=== PATIENT | female | born 1945 | race Caucasian/White ===

== ENCOUNTER 2016-09-30 18:39 | Inpatient (IN) | payer MEDICARE ==
[~2016-09-30] VITALS: Ht 162.6 cm; Wt 88.3 kg
[~2016-09-30 18:39] MED LIST: B COTAB3 PO; CALCTAB32 OR; CELE200C OR; CEPH500C3 PO; FISHCAP; FOLITAB6 OR; GABA300C3 PO; GARL10002 PO; GLUC500C4 OR; IMIT100T OR; LEXA5TAB PO; LORTA10 PO; MAGN250T13 PO; NORV5TAB PO; OMEP20TA PO; SOMA350T PO; VITA400C36; ZINC50TA PO; [UNRECOGNIZED DRUG - CODE] OR
[2016-09-30 18:41] VITALS: BP 134/74; PULSE 88; RESP 24; TEMP 98.2; O2SAT 93
--- NOTE | 2016-09-30 19:31 | PD ---
Physical Exam Time Seen by Provider: 19:26 Narrative 71 year old sent by PCP stating that she thinks she may have had a stroke. States she has been shaky for the last few days. Yesterday she just fell out- she did not pass out, but she did fall. She states today she has been shaky as well and cannot remember half of the day. Pt takes lortab for chronic pain, has a history of neuropathy and hypertension. Currently no neuro symptoms, but has been "shaky." Data Data Last Documented VS Vital Signs Date Time Temp Pulse Resp B/P Pulse Ox O2 Delivery O2 Flow Rate FiO2 09/30/16 18:41 98.2 88 24 134/74 93 Room Air MDM Medical Record Reviewed: Yes Supervised Visit with ASSKIA: No Narrative Course 71 year old female presents to ED for evaluation. Appears without distress. Will be transferred to medical bed for further evaluation. Condition: Stable Kandace Hollingsworth Sep 30, 2016 19:31
[2016-09-30] MEDS ORDERED: SODIUM CHLORIDE 0.9% FLUSH 10 ML FLUSH IVF PRN (19:45)
[2016-09-30] MEDS ORDERED: GABA300C5 PO (19:50)
[2016-09-30] MEDS ORDERED: GLUC1CAP16 (19:50)
[2016-09-30] MEDS ORDERED: B COTAB (19:50)
[2016-09-30] MEDS ORDERED: CHEL50TA (19:50)
[2016-09-30] MEDS ORDERED: [UNRECOGNIZED DRUG - CODE] PO (19:50)
[2016-09-30] MEDS ORDERED: VITA60003 (19:50)
[2016-09-30] MEDS ORDERED: CALCTAB32 PO (19:50)
[2016-09-30] MEDS ORDERED: MAGN200T PO (19:50)
[2016-09-30] MEDS ORDERED: HYDR-3583 PO (19:50)
--- NOTE | 2016-09-30 19:51 | PD ---
HPI Chief Complaint: Neuro Symptoms/ Deficits Time Seen by Provider: 19:46 Travel History International Travel<30 days: No Contact w/Intl Traveler<30days: No Traveled to known affect area: No History of Present Illness HPI Patient comes in for evaluation status post 2 mechanical falls. One occurred yesterday and one this morning. Patient denies hitting her head, loss consciousness, chest pain, shortness of breath, nausea, vomiting, loss or change in bowel or bladder, vomiting, fevers, or numbness or tingling anywhere. Patient states that she just fell over. Patient states that her primary care doctor, Dr. Geraldine Lai, told her to come to the emergency department to have an MRI done to evaluate for possible stroke. Patient states she does not want an MRI done secondary to her to having metal in her arm and right knee from previous surgeries. Patient complaining of pain in her back and pelvis status post falls. Pain is achy like in nature. PFSH Past Medical History Arthritis: Yes Asthma: Yes ("A LITTLE") Blood Disorders: No Heart Rhythm Problems: No Cancer: No Cardiovascular Problems: Yes High Cholesterol: No Chest Pain: No Congestive Heart Failure: No COPD: No Diabetes: No Diminished Hearing: No Endocrine: No Gastrointestinal Disorders: Yes Hepatitis: No Hiatal Hernia: No Hypertension: Yes Immune Disorder: No Implanted Vascular Access Dvce: Yes Musculoskeletal: Yes (HERNIATED DISKS X 3; MID LEVEL BACK PAIN RADIATING INTO LEGS) Neurologic: Yes (FIBROMYALGIA, TRANSIENT NUMBNESS IN EXTREMITIES, MIGRAINES ) Psychiatric: Yes (DEPRESSION ) Reproductive: No Respiratory: Yes Myocardial Infarction: No Thyroid Disease: No Ulcer: Yes Tetanus Vaccination: Unknown Influenza Vaccination: No Past Surgical History Abdominal Surgery: No AICD: No Arteriovenous Shunt: No Body Medical Devices: PLATE & 5 SCREWS RIGHT WRIST Cardiac Surgery: No Ear Surgery: No Endocrine Surgery: No Eye Surgery: No Genitourinary Surgery: No Gynecologic Surgery: Yes (TOTAL HYSTERECTOMY ) Hysterectomy: Yes Insulin Pump: No Joint Replacement: No Oral Surgery: Yes (TONSILLECTOMY CHILD) Pacemaker: No Thoracic Surgery: No Tonsillectomy: Yes Other Surgery: Yes Social History Alcohol Use: Yes (RARE ) Tobacco Use: No Substance Use: No Allergies-Medications (Allergen,Severity, Reaction): Coded Allergies: Codeine (Verified Allergy, Severe, N/V, 09/30/16) Erythromycins (Verified Allergy, Severe, SEVER N/V, 09/30/16) Adhesives (Verified Allergy, Intermediate, PT ALLGERIC TO PAPER TAPE, 09/30) Ascorbic Acid (Verified Allergy, Intermediate, HIVES, 09/30/16) Penicillin (Verified Allergy, Intermediate, HIVES, 09/30/16) Sulfa (Verified Allergy, Intermediate, HIVES NAUSEA, 09/30/16) Contrast Media (Verified Allergy, Mild, 09/30/16) TETANUS/DIPHTHERIA TOXOID-ADSORBED (Verified Allergy, Mild, 09/30/16) Reported Meds & Prescriptions Reported Meds & Active Scripts Active Reported Hydrochlorothiazide 12.5 Mg Cap 12.5 Mg PO DAILY Zinc (Zinc Gluconate) 50 Mg Tab Vitamin E (Vitamin E (Topical)) 100 Unit/Gm Cre Vitamin A 25,000 Unit Cap 25,000 Units PO DAILY Magnesium 200 Mg Tab 200 Mg PO DAILY Hydrocodone-Acetaminophen 10-325 mg Tab 1 Tab PO Q4H PRN Glucosamine Chondroitin (Gtiodnrqpuy-Dshacfkcrel-Xdf C-) 1 Cap Cap Gabapentin 300 Mg Cap 300 Mg PO QID Calcium Citrate + D (Calcium Citrate-Vitamin D) 315-200 Mg-Unit Tab 1 Tab PO DAILY B-Complex Balanced (B-Complex W/ C & Folic Acid) 1 Tab Review of Systems Except as stated in HPI: all other systems reviewed are Neg Physical Exam Narrative GENERAL: Well-developed, overly nourished, in no acute distress, and non-ill appearing. SKIN: Focused skin assessment warm and dry. HEAD: Atraumatic. Normocephalic. EYES: Pupils equal and round. EOMI. No scleral icterus. No injection or drainage. Equal rise and fall of eyebrows bilaterally. ENT: No nasal bleeding or discharge. Mucous membranes pink and moist. No deviation of the tongue. Smile equal bilaterally. NECK: Trachea midline. No JVD. Supple. No nuclear rigidity. CARDIOVASCULAR: Regular rate and rhythm. No murmur appreciated. Radial and dorsal pulses 2+, intact, and equal bilaterally. RESPIRATORY: No accessory muscle use. No respiratory distress. Clear to auscultation. Breath sounds equal bilaterally. GASTROINTESTINAL: Abdomen soft, non-tender, nondistended. Hepatic and splenic margins not palpable. Normal bowel sounds 4. No pulsatile mass.Shoulder:FROM equal BL with passive flexion, extension, Abduction, Adduction, internal/ external rotation, and pronation/supination. Sensation equal BL deltoid muscles. Pulses equal BL distal to injury. Capillary refill less than 2 seconds distal to injury and equal BL. FROM distal to injury and equal BL. Strength distal to injury equal BL. NV intact distal to injury equal BL. Flexion and extension of thumb equal BL. Equal strength and movement with abduction/adductions of BL fingers. Compliance Lead strength equal BL. Strength 5 out of 5 and equal bilaterally with plantar and dorsiflexion's. Sensation intact over first web space bilateral lower extremities. Pelvic stable. No tenderness or crepitus throughout the spinal column. MUSCULOSKELETAL: No obvious deformities. No clubbing. No cyanosis. No edema. Full range of motion. NEUROLOGICAL: Awake and alert. No obvious cranial nerve deficits. Motor grossly within normal limits. Normal speech. PSYCHIATRIC: Appropriate mood and affect; insight and judgment normal. Data Data Last Documented VS Vital Signs Date Time Temp Pulse Resp B/P Pulse Ox O2 Delivery O2 Flow Rate FiO2 09/30/16 21:18 18 97 09/30/16 19:39 73 09/30/16 18:41 98.2 134/74 Room Air Orders Electrocardiogram (09/30/16 19:41) Complete Blood Count With Diff (09/30/16 19:41) Comprehensive Metabolic Panel (09/30/16 19:41) Ckmb (Isoenzyme) Profile (09/30/16 19:41) Troponin I (09/30/16 19:41) Act Partial Throm Time (Ptt) (09/30/16 19:41) Prothrombin Time / Inr (Pt) (09/30/16 19:41) Urinalysis - C+S If Indicated (09/30/16 19:41) Chest, Single Ap (09/30/16 19:41) Ct Brain W/O Iv Contrast(Rout) (09/30/16 19:41) Ct Cerv Spine W/O Contrast (09/30/16 19:41) Ecg Monitoring (09/30/16 19:41) Iv Access Insert/Monitor (09/30/16 19:41) Oximetry (09/30/16 19:41) Sodium Chloride 0.9% Flush (Ns Flush) (09/30/16 19:45) Spine, Thoracic-Ap/Lat/Sw(3vw) (09/30/16 ) Spine, Lumbar - Ltd (Ap & Lat) (09/30/16 ) Pelvis, Ap Only (Routine) (09/30/16 ) CKMB (09/30/16 19:55) CKMB% (09/30/16 19:55) Sodium Chlor 0.9% 1000 Ml Inj (Ns 1000 M (09/30/16 21:15) Admit Order (Ed Use Only) (09/30/16 21:22) Labs Laboratory Tests Test 09/30/16 19:55 White Blood Count 7.2 TH/MM3 Red Blood Count 4.41 MIL/MM3 Hemoglobin 12.8 GM/DL Hematocrit 39.5 % Mean Corpuscular Volume 89.6 FL Mean Corpuscular Hemoglobin 29.0 PG Mean Corpuscular Hemoglobin 32.4 % Concent Red Cell Distribution Width 13.9 % Platelet Count 203 TH/MM3 Mean Platelet Volume 11.2 FL Neutrophils (%) (Auto) 51.8 % Lymphocytes (%) (Auto) 30.3 % Monocytes (%) (Auto) 10.0 % Eosinophils (%) (Auto) 6.5 % Basophils (%) (Auto) 1.4 % Neutrophils # (Auto) 3.7 TH/MM3 Lymphocytes # (Auto) 2.2 TH/MM3 Monocytes # (Auto) 0.7 TH/MM3 Eosinophils # (Auto) 0.5 TH/MM3 Basophils # (Auto) 0.1 TH/MM3 CBC Comment DIFF FINAL Differential Comment Prothrombin Time 11.8 SEC Prothromb Time International 1.1 RATIO Ratio Activated Partial 29.2 SEC Thromboplast Time Sodium Level 139 MEQ/L Potassium Level 3.8 MEQ/L Chloride Level 105 MEQ/L Carbon Dioxide Level 26.9 MEQ/L Anion Gap 7 MEQ/L Blood Urea Nitrogen 46 MG/DL Creatinine 2.73 MG/DL Estimat Glomerular Filtration 17 ML/MIN Rate Random Glucose 90 MG/DL Calcium Level 12.2 MG/DL Protein Corrected Calcium 12.0 MG/DL Total Bilirubin 0.4 MG/DL Aspartate Amino Transf 26 U/L (AST/SGOT) Alanine Aminotransferase 26 U/L (ALT/SGPT) Alkaline Phosphatase 86 U/L Total Creatine Kinase 373 U/L Creatine Kinase MB 5.8 NG/ML Creatine Kinase MB % 1.6 % Troponin I LESS THAN 0.02 NG/ML Total Protein 7.5 GM/DL Albumin 4.0 GM/DL MDM Medical Decision Making Medical Screen Exam Complete: Yes Emergency Medical Condition: Yes Interpretation(s) EKG reviewed by Dr. Simon, shows normal sinus rhythm with ventricular rate of 61. No STEMI. Differential Diagnosis Fracture, strain, contusion, intracranial hemorrhage, mass, electrolyte abnormality, CVA, TIA, Narrative Course Patient was seen and examined. Initial laboratory & radiological studies were obtained and reviewed. Discussed patient with Dr. Simon who recommended given patient a liter fluid secondary to hypercalcemia and admit to medicine for possible TIA versus CVA secondary to falls. Discussed all findings and plan care with patient, who is agreeable for admission. All questions were answered. 2124 Patient is refusing aspirin. Patient reports she takes 20 mg of lisinopril at night for her blood pressure. Physician Communication Physician Communication [id number] discussed patient with Cain Zaragoza PA-C, who agrees to accept admission for Dr. Richey. Diagnosis Primary Impression: Hypercalcemia Additional Impressions: Multiple falls UTI (urinary tract infection) Qualified Code: N39.0 - Urinary tract infection without hematuria, site unspecified Admitting Information Admitting Physician Requests: Observation Condition: Stable Jude Burt Sep 30, 2016 19:51 Diagnosis Primary Impression: Hypercalcemia Additional Impressions: Multiple falls UTI (urinary tract infection) Qualified Code: N39.0 - Urinary tract infection without hematuria, site unspecified Admitting Information Admitting Physician Requests: Observation Condition: Stable Jude Burt Sep 30, 2016 19:51
--- NOTE | 2016-09-30 20:26 | RADRPT ---
EXAM DATE/TIME: 09/30/2016 19:56 [facility] COMPARISON: No previous studies available for comparison. INDICATIONS : Evaluate chest for trauma, fell MEDICAL HISTORY : Hypertension. SURGICAL HISTORY : None. ENCOUNTER: Initial ACUITY: 1 day PAIN SCORE: 0/10 LOCATION: Bilateral chest FINDINGS: Trace atelectasis seen left lung base. No pleural effusion demonstrated. No pneumothorax. Heart size within normal limits. Visualized osseous structures are grossly intact. CONCLUSION: Mild left base atelectasis. No other acute cardiopulmonary disease demonstrated. Cain Chester MD on September 30, 2016 at 20:23 Board Certified Radiologist. This report was verified electronically.
--- NOTE | 2016-09-30 20:26 | RADRPT ---
EXAM DATE/TIME: 09/30/2016 19:57 [facility] COMPARISON: No previous studies available for comparison. INDICATIONS : Evaluate pelvis for trauma, fell MEDICAL HISTORY : Hypertension. SURGICAL HISTORY : None. ENCOUNTER: Initial ACUITY: 1 day PAIN SCORE: 0/10 LOCATION: Pelvis FINDINGS: A single frontal view of the pelvis demonstrates no evidence of fracture. The bony pelvic ring is in tact. Bony mineralization is normal. The soft tissues are intact. CONCLUSION: Intact pelvis. Cain Chester MD on September 30, 2016 at 20:24 Board Certified Radiologist. This report was verified electronically.
--- NOTE | 2016-09-30 20:27 | RADRPT ---
EXAM DATE/TIME: 09/30/2016 19:59 [facility] COMPARISON: No previous studies available for comparison. INDICATIONS : Evaluate lumbar spine for trauma, fell MEDICAL HISTORY : Hypertension. SURGICAL HISTORY : None. ENCOUNTER: Initial ACUITY: 1 day PAIN SCORE: 4/10 LOCATION: Lumbar FINDINGS: No fracture or subluxation demonstrated of the lumbar spine. There is mild/moderate disc space narrow ing at L3/L4, L4/L5 and L5/S1. There is severe bilateral facet osteoarthritis at L5/S1. Moderate face t osteoarthritis at L3/L4 and L4/L5. CONCLUSION: No fracture or subluxation of the lumbar spine. Mid and lower lumbar degenerative changes as above. Cain Chester MD on September 30, 2016 at 20:25 Board Certified Radiologist. This report was verified electronically.
--- NOTE | 2016-09-30 20:29 | RADRPT ---
EXAM DATE/TIME: 09/30/2016 20:00 [facility] COMPARISON: No previous studies available for comparison. INDICATIONS : Evaluate Thoracic spine for trauma, fell MEDICAL HISTORY : Hypertension. SURGICAL HISTORY : None. ENCOUNTER: Initial ACUITY: 1 day PAIN SCORE: 10 LOCATION: chest FINDINGS: Thoracic kyphosis is mildly exaggerated. No fracture or subluxation. Mild dextroconvex curvature pres ent as well. Vertebral bodies have normal height. There is mild disc space narrowing at essentially a ll levels. CONCLUSION: Degenerative/chronic appearing kyphoscoliosis. No fracture or subluxation of the thoracic spine. Cain Chester MD on September 30, 2016 at 20:26 Board Certified Radiologist. This report was verified electronically.
--- NOTE | 2016-09-30 20:34 | RADRPT ---
EXAM DATE/TIME: 09/30/2016 20:08 [facility] COMPARISON: CT BRAIN W/O CONTRAST, February 05, 2011, 18:06. INDICATIONS : Syncope and memory loss. RADIATION DOSE: 31.56 CTDIvol (mGy) MEDICAL HISTORY : Cardiovascular disease. Hypertension. SURGICAL HISTORY : Hysterectomy. ENCOUNTER: Initial ACUITY: 1 day PAIN SCALE: 2/10 LOCATION: cranial TECHNIQUE: Multiple contiguous axial images were obtained of the head. Using automated exposure control and adj ustment of the mA and/or kV according to patient size, radiation dose was kept as low as reasonably a chievable to obtain optimal diagnostic quality images. FINDINGS: There is no intracranial hemorrhage or hematoma. No evidence of an acute ischemic event. Chronic whit e matter changes are again noted. 2.2 cm left frontal extra-axial mass again noted typical of benign meningioma. This is about the same size. It is more calcified than before. No skull invasion demonstrated. No mass effect or midline sh ift. CONCLUSION: 1. No bleed or other acute intracranial abnormality. 2. Chronic appearing white matter changes. 3. 2.2 cm left frontal meningioma again noted, not significantly changed in size. Cain Chester MD on September 30, 2016 at 20:29 Board Certified Radiologist. This report was verified electronically.
--- NOTE | 2016-09-30 20:37 | RADRPT ---
EXAM DATE/TIME: 09/30/2016 20:08 [facility] COMPARISON: No previous studies available for comparison. INDICATIONS : Syncope and fall. RADIATION DOSE: 20.36 CTDIvol (mGy) MEDICAL HISTORY : Cardiovascular disease. Hypertension. SURGICAL HISTORY : Hysterectomy. ENCOUNTER: Initial ACUITY: 1 day PAIN SCALE: 2/10 LOCATION: neck TECHNIQUE: Volumetric scanning of the cervical spine was performed. Multiplanar reconstructions in the sagittal, coronal and oblique axial planes were performed. Using automated exposure control and adjustment o f the mA and/or kV according to patient size, radiation dose was kept as low as reasonably achievable to obtain optimal diagnostic quality images. FINDINGS: A few millimeters of degenerative anterolisthesis seen at C3/C4. There are a few millimeters of degen erative retrolisthesis at C4/C5. No fracture or acute appearing malalignment demonstrated. Moderate degenerative changes are seen anteriorly at C1/C2. Moderate to severe disc space narrowing with small, broad posterior disc osteophyte complexes and kena ateral uncovertebral and facet osteoarthritis seen at C4/C5, C5/C6 and C6 on C7. The no significant l oss of height of the C7/T1 disc but there is severe facet osteoarthritis on the right. Juxtavertebral soft tissues are within normal limits. CONCLUSION: No fracture or acute appearing malalignment of the cervical spine. Degenerative changes as above. Cain Chester MD on September 30, 2016 at 20:32 Board Certified Radiologist. This report was verified electronically.
[2016-09-30 20:38] LABS: AUTOMATED NEUTROPHIL # 3.7 TH/MM3 (1.8-7.7); BASOPHIL # 0.1 TH/MM3 (0-0.2); BASOPHIL % 1.4 % (0.0-2.0); EOSINOPHIL # 0.5 TH/MM3 (0-0.4); EOSINOPHIL % 6.5 % (0.0-4.0); HEMATOCRIT 39.5 % (35.0-46.0); HEMO FLAGS DIFF FINAL; LYMPH % 30.3 % (9.0-44.0); LYMPHOCYTE # 2.2 TH/MM3 (1.0-4.8); MEAN CELL VOLUME 89.6 FL (80.0-100.0); MEAN CORPUSCULAR HGB CONC 32.4 % (32.0-36.0); NEUT % 51.8 % (16.0-70.0); PLATELET COUNT 203 TH/MM3 (150-450); RED BLOOD COUNT 4.41 MIL/MM3 (4.00-5.30); RED CELL DISTRIBUTION WIDTH 13.9 % (11.6-17.2); WHITE BLOOD COUNT 7.2 TH/MM3 (4.0-11.0)
[2016-09-30 20:54] LABS: APTT (PATIENT) 29.2 SEC (24.3-30.1); INTERNATIONAL NORMALIZED RATIO 1.1 RATIO; PROTHROMBIN TIME - PATIENT 11.8 SEC (9.8-11.6)
[2016-09-30 21:02] LABS: ALKALINE PHOSPHATASE 86 U/L (45-117); ALT (GPT) 26 U/L (10-53); ANION GAP 7 MEQ/L (5-15); AST (GOT) 26 U/L (15-37); BICARBONATE 26.9 MEQ/L (21.0-32.0); BLOOD UREA NITROGEN 46 MG/DL (7-18); CHLORIDE 105 MEQ/L (98-107); CREATINE KINASE 373 U/L (26-192); GLOMERULAR FILTRATION RATE 17 ML/MIN (>89); POTASSIUM 3.8 MEQ/L (3.5-5.1); SODIUM (NA) 139 MEQ/L (136-145); TOTAL BILIRUBIN ADULT 0.4 MG/DL (0.2-1.0)
[2016-09-30] MEDS ORDERED: SODIUM CHLOR 0.9% 1000 ML INJ 1,000 ML IV ONE (21:15)
[2016-09-30 21:18] VITALS: RESP 18; O2SAT 97
[2016-09-30 21:23] LABS: CKMB 5.8 NG/ML (0.5-3.6)
[2016-09-30 21:41] VITALS: BP 194/101; PULSE 89; RESP 18; O2SAT 98
[2016-09-30 21:45] LABS: BACTERIA, URINE RARE /hpf; BLOOD, URINE NEG (NEG); COMMENT (UR) CULTURE INDICATED; CULTURE IF INDICATED CULTURE INDICATED; GLUCOSE,URINE TRACE mg/dL (NEG); HYALINE CAST, URINE 1 /lpf (RARE); KETONE, URINE NEG (NEG); NITRITE,URINE NEG (NEG); SQUAMOUS EPITHELIAL CELL URINE <1 /hpf (0-5); URINE COLOR LIGHT-YELLOW (YELLW/STRAW)
[2016-09-30] MEDS ORDERED: LISINOPRIL 20 MG TAB PO ONE (21:45)
[2016-09-30] MEDS ORDERED: HYDR12.57 PO (21:56)
[2016-09-30] MEDS ORDERED: NITROFURANTOIN MONOHYD MACROCR 100 MG CAP PO ONE (22:00)
[2016-09-30 23:15] VITALS: BP 198/94; PULSE 67; RESP 18; O2SAT 98
[2016-09-30] MEDS ORDERED: cloNIDine HCL 0.1 MG TAB PO ONE (23:15)
[2016-09-30] MEDS ORDERED: NALOXONE HCL 0.4 MG/ML AMP IV PRN (23:15)
[2016-09-30] MEDS ORDERED: SODIUM CHLORIDE 0.9% FLUSH 10 ML FLUSH IV FLUSH PRN (23:15)
[2016-09-30] MEDS ORDERED: ACETAMINOPHEN 325 MG TAB PO PRN (23:15)
[2016-09-30] MEDS: SODIUM CHLOR 0.9% 1000 ML INJ 1,000 ML IV SCH (23:39)
[2016-09-30] MEDS: HEPARIN SODIUM - SQ 10,000 UNITS/ML VIAL SQ SCH (23:58)
[2016-09-30] MEDS: AZTREONAM INJ 500 MG in SODIUM CHLORIDE 0.9% INJ 100 ML IV SCH (23:58)
[2016-10-01] VITALS (10 sets, daily range): BP systolic 98–181; BP diastolic 54–76; PULSE 58–76; RESP 16–20; TEMP 97.6–98.5; O2SAT 91–98
[2016-10-01 05:19] LABS: AUTOMATED NEUTROPHIL # 4.3 TH/MM3 (1.8-7.7); BASOPHIL # 0.1 TH/MM3 (0-0.2); BASOPHIL % 1.3 % (0.0-2.0); EOSINOPHIL # 0.5 TH/MM3 (0-0.4); EOSINOPHIL % 6.1 % (0.0-4.0); HEMATOCRIT 36.9 % (35.0-46.0); HEMO FLAGS DIFF FINAL; LYMPH % 28.3 % (9.0-44.0); LYMPHOCYTE # 2.1 TH/MM3 (1.0-4.8); MEAN CELL VOLUME 90.5 FL (80.0-100.0); MEAN CORPUSCULAR HEMOGLOBIN 29.7 PG (27.0-34.0); MEAN CORPUSCULAR HGB CONC 32.8 % (32.0-36.0); MONO % 7.8 % (0.0-8.0); NEUT % 56.5 % (16.0-70.0); PLATELET COUNT 188 TH/MM3 (150-450); RED BLOOD COUNT 4.07 MIL/MM3 (4.00-5.30); WHITE BLOOD COUNT 7.5 TH/MM3 (4.0-11.0)
[2016-10-01 05:50] LABS: BICARBONATE 26.9 MEQ/L (21.0-32.0); POTASSIUM 3.6 MEQ/L (3.5-5.1)
--- NOTE | 2016-10-01 07:44 | EKG ---
Date Performed: 09/30/2016 Time Performed: 21:09:32 PTAGE: 71 years EKG: Sinus rhythm NONSPECIFIC T-WAVE ABNORMALITY BORDERLINE ECG NO SIGNIFICANT CHANGE FROM PRIOR ELECTROCARDIOGRAM. PREVIOUS TRACING : 12/25/2015 04.39 DOCTOR: Mat Sellers Interpretating Date/Time 10/01/2016 07:43:20
[2016-10-01 07:50] LABS: WESTERGREN SEDIMENTATION RATE 40 mm/hr (0-30)
[2016-10-01] MEDS: FUROSEMIDE 40 MG TAB PO SCH (08:41)
[2016-10-01] MEDS: GABAPENTIN 100 MG CAP PO SCH ×4 (08:41→22:58)
[2016-10-01] MEDS: DOXYCYCLINE HYCLATE 100 MG CAP PO SCH ×2 (08:41→20:17)
[2016-10-01] MEDS: CHOLECALCIFEROL (VIT D3) 400 UNIT TAB PO SCH (08:41)
[2016-10-01] MEDS: SODIUM CHLORIDE 0.9% FLUSH 10 ML FLUSH IV FLUSH SCH ×2 (08:42→20:16)
[2016-10-01] MEDS: MAGNESIUM OXIDE 400 MG TAB PO SCH (08:42)
[2016-10-01] MEDS ORDERED: GABAPENTIN 300 MG CAP PO SCH (09:00)
[2016-10-01] MEDS ORDERED: CALCIUM/VITAMIN D 250 MG/125 U TAB PO SCH (09:00)
--- NOTE | 2016-10-01 10:19 | MH ---
cc: CHRISTY GROSSMAN MD DATE OF ADMISSION: 09/30/2016 CHIEF COMPLAINT Falls with some dizziness. TRAVEL IN THE LAST 30 DAYS None. HISTORY OF PRESENT ILLNESS This is a 71-year-old white female who had noticed approximately four falls within the past few days. She also complains of some shaking of her extremities with special attention to her hands and arms that occurs off and on. She states she has no warning to her symptoms. She also complains of a mild amount of dizziness but states that she is not dizzy all the time. The last fall the patient was standing at her counter in the kitchen drinking some tea. She states that she fell backwards and hit the floor. She denies losing any consciousness, denies hitting her head. She stated then that she decided she needed to come in for evaluation. The patient denies any chest pain. No shortness of breath. No fever, no recent infection or antibiotic use. The patient states takes her medications as prescribed. She denies any nausea, vomiting, diarrhea or constipation. Since the fall the patient does have some musculoskeletal aches and pains in her back and hip area. The patient also notes some mild cough with seasonal allergies recently. PAST MEDICAL HISTORY 1. Arthritis. 2. Asthma mild requiring no hospitalizations. 3. Seasonal allergies. 4. Hypertension. 5. Some GI disorders according to the record. 6. Degenerative disk disease with herniated disk. 7. Fibromyalgia. 8. Depression. 9. Ulcers. 10. Gastroesophageal reflux disease. PAST SURGICAL HISTORY 1. Right wrist surgery with plates and screws. 2. Total hysterectomy. 3. Tonsillectomy as a child. ALLERGIES ADHESIVES. ASCORBIC ACID. CODEINE. CONTRAST MEDIA. ERYTHROMYCIN. PENICILLIN. SULFA. TETANUS TOXOID. MEDICATIONS 1. Hydrochlorothiazide. 1. Zinc. 2. Vitamin E. 3. Vitamin A. 4. Magnesium. 5. Hydrocodone. 6. Glucosamine. 7. Gabapentin. 8. Calcium plus vitamin D. 9. B-complex. SOCIAL HISTORY The patient is , currently lives at home with her . She denies any tobacco use. Rare social alcohol intake and no illicit drugs. REVIEW OF SYSTEMS A 12-point review was done. Positives noted in HPI which include some seasonal allergy and cough a couple of weeks ago, tremors, balance disorders in which she falls backwards, lower extremity edema. Otherwise systems are negative or unremarkable. PHYSICAL EXAMINATION VITAL SIGNS: Temperature is 97.8, pulse 68, respirations 16, blood pressure 145/71, has been as high as 181/72 and as low as 110/57, O2 sat 95 on room air. GENERAL: Well-developed, mildly obese white female, looks to be her stated age, resting in the bed. She is alert and oriented and a fair historian. SKIN: [place], warm and dry. HEENT: Atraumatic, normocephalic. BRENNEN at 2. No scleral icterus. No drainage. Mucous membranes are pink and moist. Tongue is midline. NECK: Supple. No JVD. Trachea is midline. CARDIOVASCULAR: S1-S2, no murmurs, rubs or gallops noted. She does have lower extremity edema, 2+ left leg, 3+ right leg with some mild erythema but no broken skin. PULMONARY: Lung sounds were essentially clear anteriorly and posteriorly without wheezing or rhonchi and some diminished breath sounds in her left lower base. GI: Abdomen is round, soft, nontender, nondistended. Active bowel sounds x 4. MUSCULOSKELETAL: Moves her extremities with purpose. She has equal hand elder assistant and she can overcome resistance. NEUROLOGIC: Awake, alert. A fair to good historian. Speech is clear. Tongue is midline. PSYCHIATRIC: Insight and judgment appear normal. Affect normal. DIAGNOSTIC DATA WBC count 7.5, RBC 4.07, hemoglobin 12.1, hematocrit 36.9, platelet count 188. MPV 11.4. Sed rate 40. PT/INR 1.1. Chemistry: Sodium 143, potassium 3.6, chloride 107, carbon dioxide 26.9, anion gap 9, BUN 37, creatinine 2.04, GFR 24, glucose 93, calcium 11.4, phosphorus 2.6. Vitamin D level 31.8. TSH 2.180, PTH 6.8. Urinalysis: Urine color is light yellow, clear, pH is 5, specific gravity 1.010, negative protein, trace glucose, negative ketones, occult blood, nitrites or bilirubin, large amount of leukocyte esterase. Culture is indicated. CERVICAL SPINE CT No fracture degenerative changes. CHEST X-RAY Mild left base atelectasis. CT HEAD No bleed. Chronic-appearing white matter changes. A 2.2 cm left frontal hemangioma noted, not significantly changed in size. LUMBAR SPINE X-RAY No fractures, degenerative changes. PELVIS X-RAY Intact pelvis. THORACIC SPINE X-RAY Degenerative chronic kyphoscoliosis, no fracture. ASSESSMENT AND PLAN 1. Hypercalcemia with tremors. 2. Multiple falls. 3. Urinary tract infection. 4. Acute kidney injury with dehydration. 5. Lower extremity edema Our plan is to admit to inpatient status for DVT prophylaxis with heparin subcu, ultrasound of carotid arteries which is pending, consult neurology for his expert opinion. A 2-D echo is ordered, pending. Currently the patient is on bedrest, advised not to be up or to call the nurse for any needs. Reconcile medications as warranted. The patient has been placed on Lasix p.o. daily, doxycycline p.o. The patient's home medicine calcium has been discontinued but vitamin D has been continued. Gentle hydration with IV fluids. In the emergency room the patient did receive Catapres 0.1 mg p.o. once. She also has a p.r.n. dose of Catapres if needed. The patient was given a bolus of sodium chloride and multiple diagnostic tests, carotid artery and 2-D echo are still pending. Vital signs will be q. 4 and p.r.n. as needed. We will consult PT to eval and treat. SCDs. The patient is full code, full aggressive care. We will review labs in the morning. The patient's care will be based on her symptoms and review during this hospital course. Dictated by: COURTNEY Escobar MD DAGO Barrett/MARAL /8:34 AM /10:19 AM
[2016-10-01] MEDS: ACETAMINOPHEN/HYDROcodone 325 MG/10 MG TAB PO PRN (10:21)
--- NOTE | 2016-10-01 10:33 | HP.UPD ---
H&P Update Note Patient seen and examined in room f 71. This is a 71-year-old female with repeated falls. She has a chronic kidney disease. She was admitted with 2 new falls but without actual injuries. She walks with a cane. Her workup so far negative except for elevated creatinine, elevated calcium level and a left frontal meningioma. Supplemental calcium has been discontinued also her hydrochlorothiazide has been discontinued. She was put on Lasix. Nephrology and neurology consultation is requested. Further recommendations to follow Lolis Richey MD Oct 01, 2016 10:31
[2016-10-01] MEDS: SODIUM CHLOR 0.9% 1000 ML INJ 1,000 ML IV SCH ×2 (11:07→18:28)
[2016-10-01 11:51] LABS: TOTAL PROTEIN SPE 7.1 GM/DL (6.0-7.6)
--- NOTE | 2016-10-01 12:27 | MB ---
cc: HAILE CUTLER M.D. DATE OF CONSULTATION 10/01/2016 DATE OF 1945 REASON FOR CONSULTATION Possible stroke. HISTORY This is a 71-year-old woman who had a recent fall, however states she has been feeling lightheaded, dizzy, not vertiginous for some time now, may be week or so. She was walking to the bathroom apparently and fell. She denies losing consciousness or hitting her head except feeling upset that she did fall. She had to call her to bring a pillow so she can put it underneath her knees and get herself up. She not lose her bowels or bladder incontinence. Did not lose power on one side of the body. No loss of awareness. Apparently her primary care doctor was informed about this and she was told to come to the ER for an evaluation. Currently she is not feeling lightheaded or dizzy. She is ambulating in the corridor here to the bathroom and back. PAST MEDICAL HISTORY She has a past medical history of: 1. Back pain 2. Fibromyalgia 3. Depression 4. Right knee replacement 5. Hysterectomy 6. Right wrist surgery CURRENT MEDICATIONS 1. Hydrochlorothiazide 2. Zinc 3. Vitamin E 4. Vitamin A 5. Magnesium 6. Lortab 10/325 7. Glucosamine 8. Gabapentin 300 mg q.i.d. 9. Calcium, D and B complex ALLERGIES CODEINE, ERYTHROMYCIN, ADHESIVES, ASCORBIC ACID, PENICILLIN, SULFA, CONTRAST MEDIA, TETANUS, DIPHTHERIA TOXOID. SOCIAL HISTORY Rarely drinks. No tobacco. No substance abuse. Lives with her . PHYSICAL EXAM VITAL SIGNS: Temperature 97.8, pulse 60, respiratory rate 16, blood pressure 145/71. When she came in, her blood pressure initially was 134/74. NECK: Supple. I do not appreciate any bruits. HEART: Regular. NEUROLOGIC: She is awake, alert. She is oriented and fluent. Pupils reactive. Visual almonte are full. No nystagmus. Face symmetrical. Tongue midline. Motor, no drift. No leg lag. Both toes are downgoing. Reflexes are 1+. Sensory normal. Yqqydq-[id number] no past-pointing and I am observing her here ambulating in the hallway with a single point cane as she normally does. LABORATORY DATA Her sed rate is 40. Her CBC otherwise show 6.1 eosinophils. Coag panel PT is 11.8. She came in with a BUN of 46, creatinine 2.73, calcium 12.2, correct to the 12, CK 373, troponin less than 0.02, PTH 6.8, TSH 2.180, vitamin D is pending. Albumin 4, 25 , vitamin D is 31.8 currently her BUN is 37, creatinine 2.04, GFR 24, calcium now is 11.4, phosphorus 2.6. Urine shows large leukocyte esterase. Culture is pending. IMAGING STUDIES CT of the neck, no fracture, just degenerative changes. Chest x-ray mild left base atelectasis. Head CT, no bleed, chronic white matter changes. A 2.2 left frontal meningioma. No change in size. Lumbar x-ray, no fracture, degenerate changes. Pelvic x-ray intact pelvis. Thoracic spine x-ray degenerative chronic appearing kyphoscoliosis. IMPRESSION A 71-year-old woman status post fall for dizziness. Concerning would be a vertebral basilar insufficiency, TIA/stroke possible, also concerning would be she has any stenosis of the carotids that is high-grade, orthostatic hypotension, but she is right now showing signs of renal disease, as well as hypocalcemia and nephrology has been consulted to assess. Continue hydrating her. I would recommend an imaging MRI brain [place] of [place], carotid ultrasound echo, as well as an EEG and depending on findings will make further recommendations. She refuses to take aspirin because she bruises easily. We will check orthostatics as well. Further recommendations to be made. MD MICHAEL Carbajal/DORA /10:13 AM /12:18 PM
[2016-10-01] MEDS: AZTREONAM INJ 500 MG in SODIUM CHLORIDE 0.9% INJ 100 ML IV SCH ×2 (13:13→23:00)
[2016-10-01] MEDS: HEPARIN SODIUM - SQ 10,000 UNITS/ML VIAL SQ SCH ×2 (13:15→22:58)
--- NOTE | 2016-10-01 15:13 | EC ---
Study Study Date:10/01/2016 STUDY CONCLUSIONS SUMMARY - Left ventricle: The cavity size was normal. Wall thickness was normal. Systolic function was normal. The estimated ejection fraction was in the range of 60% to 65%. Wall motion was normal; there were no regional wall motion abnormalities. - Aortic valve: Valve area: 1.71cm^2 (Vmax). - Mitral valve: Mild regurgitation. - Tricuspid valve: Mild regurgitation. - Pulmonary arteries: Systolic pressure was mildly increased. Impressions: No cardiac source of emboli was indentified. If LV function is below 40, please consider prescribing an ACEI or ARB or document rationale for non-use. PROCEDURE DATA STUDY STATUS: Elective. Procedure: Transthoracic echocardiography. Image quality was good. Scanning was performed from the parasternal, apical, and subcostal acoustic windows. Study completion: The patient tolerated the procedure well. Transthoracic echocardiography. M-mode, complete 2D, complete spectral Doppler, and color Doppler. Height: Height: 64in. Weight: Weight: 179.6lb. Body mass index: BMI: 30.9kg/m^2. Body surface area: BSA: 1.87m^2. Patient status: Inpatient. CARDIAC ANATOMY LEFT VENTRICLE: The cavity size was normal. Wall thickness was normal. Systolic function was normal. The estimated ejection fraction was in the range of 60% to 65%. Wall motion was normal; there were no regional wall motion abnormalities. AORTIC VALVE: Trileaflet; normal thickness leaflets. Doppler: Transvalvular velocity was within the normal range. There was no stenosis. No regurgitation. Valve area: 1.71cm^2 (Vmax). Indexed valve area: 0.91cm^2/m^2 (Vmax). Peak gradient: 11mm Hg (S). AORTA: Aortic root: The aortic root was normal in size. MITRAL VALVE: Structurally normal valve. Doppler: Transvalvular velocity was within the normal range. There was no evidence for stenosis. Mild regurgitation. Valve area by pressure half-time: 3.14cm^2. Indexed valve area by pressure half-time: 1.68cm^2/m^2. Peak gradient: 4mm Hg (D). LEFT ATRIUM: The atrium was normal in size. RIGHT VENTRICLE: The cavity size was normal. Wall thickness was normal. PULMONIC VALVE: Doppler: Transvalvular velocity was within the normal range. There was no evidence for stenosis. No regurgitation. TRICUSPID VALVE: Structurally normal valve. Doppler: Transvalvular velocity was within the normal range. Mild regurgitation. Peak gradient: 26mm Hg (D). PULMONARY ARTERY: The main pulmonary artery was normal-sized. Systolic pressure was mildly increased. RIGHT ATRIUM: The atrium was normal in size. PERICARDIUM: There was no pericardial effusion. SYSTEMIC VEINS: Inferior vena cava: The vessel was normal in size. Patient weight: 179.6lb _Ejection fraction:_ 65-75% _Fractional shortening:_ 32% up to 5Kg 5-11.5Kg 11.6-22.9Kg 23-45Kg 45-57Kg Aortic Root 7-13 <17 13-22 17-27 17-27 LA diam 6-13 <23 24-38 33-47 37-40 RVID 10-17 7-15 7-15 7-18 8-17 LVIDd 12-22 <32 24-38 33-47 37-40 LVPW 2-4 3-6 5-7 6-8 7-8 IVS 2-4 3-6 5-7 6-8 7-8 BASIC MEASUREMENTS ADULT NORMAL Left ventricle LV internal dimension, ED, chordal 45.8 mm 43-52 level, PLAX LV internal dimension, ES, chordal 25.3 mm 23-38 level, PLAX Fractional shortening, chordal level, 45 % >29 PLAX LV posterior wall thickness, ED 11 mm IVS/LVPW ratio, ED 0.96 <1.3 Volume, ED, MOD, 1-plane 42 ml Volume, ES, MOD, 1-plane 11 ml Ejection fraction, MOD, 1-plane 74 % Stroke volume, MOD, 1-plane 31 ml Volume index, ED, MOD, 1-plane 22 ml/m^2 Volume index, ES, MOD, 1-plane 6 ml/m^2 Stroke index, MOD, 1-plane 16.6 ml/m^2 Ventricular septum Septal thickness, ED 10.6 mm Aortic valve Leaflet separation 21 mm 15-26 Left atrium Anterior-posterior dimension 39 mm Anterior-posterior dimension index 2.09 cm/m^2 <2.2 Right ventricle RV internal dimension, ED, PLAX 25.6 mm 19-38 BASIC MEASUREMENTS ADULT NORMAL Aortic valve Leaflet separation 21 mm 15-26 Aorta Root diameter, ED 33 mm 20-37 DOPPLER MEASUREMENTS ADULT NORMAL Main pulmonary artery Pressure, S 27 mm Hg =30 Aortic valve Peak velocity, S 165 cm/s Peak gradient, S 11 mm Hg Valve area, Vmax 1.71 cm^2 Valve area index, Vmax 0.91 cm^2/m^2 Mitral valve Peak E-wave velocity 96.3 cm/s Peak A-wave velocity 96.3 cm/s Pressure half-time 70 ms Peak gradient, D 4 mm Hg Peak E/A ratio 1 Valve area, pressure half-time 3.14 cm^2 Valve area index, pressure half-time 1.68 cm^2/m^2 Tricuspid valve Peak gradient, D 26 mm Hg Maximal inflow velocity 254 cm/s Regurgitant peak velocity 232 cm/s Peak RV-RA gradient, S 22 mm Hg Systemic veins Estimated CVP 10 mm Hg Right ventricle RV pressure, S *32 mm Hg <30 Pulmonic valve Peak velocity, S 115 cm/s LEGEND: Mean values are shown as u=mean value. Asterisk (*) ledbetter values outside specified normal range. Prepared and signed by Beverly Cardenas [id number]
--- NOTE | 2016-10-01 16:55 | RADRPT ---
EXAM DATE/TIME: 10/01/2016 15:55 [facility] COMPARISON: US KIDNEY/RENAL/BLADDER, February 06, 2011, 19:22. INDICATIONS : Increased labs. MEDICAL HISTORY : Hypertension. Asthma. Ulcer. Arthritis. UTI. SURGICAL HISTORY : Tonsillectomy. Hysterectomy. Total knee replacement. ENCOUNTER: Initial ACUITY: 1 day PAIN SCORE: 0/10 LOCATION: Bilateral flank MEASUREMENTS: RIGHT KIDNEY: 10.0 x 4.9 x 4.6 cm LEFT KIDNEY: 8.8 x 5.0 x 5.5 cm FINDINGS: RIGHT KIDNEY: Renal cortex is mildly thinned and has a homogeneous echotexture. The appearance is similar to prior ultrasound 2011. No hydronephrosis, stone, or mass. LEFT KIDNEY: Renal cortex is mildly thinned and has a homogeneous echotexture. The appearance is similar to prior ultrasound 2011.. No hydronephrosis, stone, or mass. BLADDER: Moderately distended. CONCLUSION: No acute findings in the kidneys. Asher Donis MD on October 01, 2016 at 16:51 Board Certified Radiologist. This report was verified electronically.
--- NOTE | 2016-10-01 18:13 | RADRPT ---
EXAM DATE/TIME: 10/01/2016 15:37 [facility] COMPARISON: No previous studies available for comparison. INDICATIONS : Cerebrovascular accident. MEDICAL HISTORY : Hypertension. Asthma. Ulcer. Arthritis. UTI. SURGICAL HISTORY : Tonsillectomy. Hysterectomy. Total knee replacement. ENCOUNTER: Initial ACUITY: 2 days PAIN SCORE: 0/10 LOCATION: Bilateral neck PEAK SYSTOLIC VELOCITIES (cm/sec): ICA/CCA RATIO: Right: 1.1 Left: 2.1 ICA: Right: 161 Left: 240 CCA: Right: 144 Left: 117 ECA: Right: 116 Left: 291 VERTEBRAL: Right: 56 antegrade Left: 84 antegrade Elevated flow velocities and ICA/CCA ratios have been found to correlate with increased degrees of vessel stenosis, calculated as percentage of diameter relative to a normal segment of distal ICA/CCA FINDINGS: RIGHT CAROTID: Calcified atherosclerotic plaquing in the carotid bulb extending up into the base of the internal car otid. The waveforms are within normal limits. LEFT CAROTID: Calcified plaquing in the mid common carotid artery and carotid bulb extending into the internal. Th e waveforms are within normal limits. VERTEBRAL ARTERIES: Antegrade flow is seen in both vertebral arteries. MISCELLANEOUS: None. CONCLUSION: 1. Calcified atherosclerotic plaque in both carotid systems, left greater than right. 2. Doppler velocities and ratios suggest a moderate, 50-69% stenosis in the left internal and a possi ble high-grade stenosis of the left external carotid arteries. 3. High resistance waveform in the right vertebral suggest distal occlusion or termination in a PICA branch. Left vertebral is sonographically normal. 4. CTA of the cervical vessels is recommended for anatomic characterization. Piter Basilio MD on October 01, 2016 at 18:04 Board Certified Radiologist. This report was verified electronically.
[2016-10-01] MEDS: ONDANSETRON HCL 4 MG/2 ML VIAL IVP PRN (20:17)
--- NOTE | 2016-10-01 22:31 | MG ---
cc: BILL GAVIN M.D. Lab No: Date: 10/01/2016 Age: Sex: F Race: REQUESTING PHYSICIAN Dr. Mc. INTRODUCTION An EEG was obtained on this 71-year-old patient being evaluated for recurrent falls. DESCRIPTION The patient is described as awake during this study. The EEG shows a mixture of beta rhythms along with some low and mid amplitude alpha activity. The patient drowses and there are theta rhythms bilaterally. There is some rare delta activity. Photic stimulation disclosed no significant change. INTERPRETATION Abnormal EEG because mild bilateral slowing suggestive of a mild diffuse disturbance of cerebral function. No epileptiform features are present. Bill Gavin MD OFC/KK /9:31 PM /10:25 PM
[2016-10-01] MEDS ORDERED: REST30CA PO (23:07)
[2016-10-01] MEDS: TEMAZEPAM 15 MG CAP PO PRN (23:47)
[2016-10-02] VITALS (7 sets, daily range): BP systolic 153–195; BP diastolic 67–93; PULSE 74–94; RESP 16–20; TEMP 96.9–99.1; O2SAT 92–98
--- NOTE | 2016-10-02 08:47 | HHI.PR ---
Subjective Remarks sitting on side of bed alert, responsive, feeling much better no SOB no hand tremors 99.1 temp Objective Objective Results - Vital Signs Date Time Temp Pulse Resp B/P Pulse Ox O2 Delivery O2 Flow Rate FiO2 10/02/16 08:14 98.4 85 20 160/74 94 10/02/16 06:35 74 16 153/74 10/02/16 05:07 99.1 80 20 195/86 92 10/02/16 03:05 21 10/02/16 00:48 98.1 75 20 153/67 95 10/01/16 19:19 98.0 68 20 148/70 95 10/01/16 16:11 97.7 70 18 135/63 95 10/01/16 11:21 16 10/01/16 10:59 98.5 71 18 132/62 95 Result Diagram: 10/01/16 0347 10/01/16 0347 Other Results Last Impressions Renal Ultrasound 10/01/16 0000 Signed Impressions: Service Date/Time: Saturday, October 01, 2016 15:55 - CONCLUSION: No acute findings in the kidneys. Asher Donis MD Carotid Artery Ultrasound 10/01/16 0000 Signed Impressions: Service Date/Time: Saturday, October 01, 2016 15:37 - CONCLUSION: 1. Calcified atherosclerotic plaque in both carotid systems, left greater than right. 2. Doppler velocities and ratios suggest a moderate, 50-69%% stenosis in the left internal and a possible high-grade stenosis of the left external carotid arteries. 3. High resistance waveform in the right vertebral suggest distal occlusion or termination in a PICA branch. Left vertebral is sonographically normal. 4. CTA of the cervical vessels is recommended for anatomic characterization. Piter Basilio MD Head CT 09/30/161940 Signed Impressions: Service Date/Time: Friday, September 30, 2016 20:08 - CONCLUSION: 1. No bleed or other acute intracranial abnormality. 2. Chronic appearing white matter changes. 3. 2.2 cm left frontal meningioma again noted, not significantly changed in size. Cain Chester MD Chest X-Ray 09/30/161940 Signed Impressions: Service Date/Time: Friday, September 30, 2016 19:56 - CONCLUSION: Mild left base atelectasis. No other acute cardiopulmonary disease demonstrated. Cain Chester MD Cervical Spine CT 09/30/16 194 Signed Impressions: Service Date/Time: Friday, September 30, 2016 20:08 - CONCLUSION: No fracture or acute appearing malalignment of the cervical spine. Degenerative changes as above. Cain Chester MD Thoracic Spine X-Ray 09/30/16 0000 Signed Impressions: Service Date/Time: Friday, September 30, 2016 20:00 - CONCLUSION: Degenerative/chronic appearing kyphoscoliosis. No fracture or subluxation of the thoracic spine. Cain Chester MD Pelvis X-Ray 09/30/16 0000 Signed Impressions: Service Date/Time: Friday, September 30, 2016 19:57 - CONCLUSION: Intact pelvis. Cain Chester MD Lumbar Spine X-Ray 09/30/16 0000 Signed Impressions: Service Date/Time: Friday, September 30, 2016 19:59 - CONCLUSION: No fracture or subluxation of the lumbar spine. Mid and lower lumbar degenerative changes as above. Cain Chester MD Medications and IVs Active Medications Calcium/Vitamin D (Oscal-D 250-125) 500 mg DAILY PO; Start 10/01/16 at 09:00; Stop 10/01/16 at 09:00; Status DC Cholecalciferol (Vitamin D3) 400 units DAILY PO Last administered on 10/01/16 08:41; Admin Dose 400 UNITS; Start 10/01/16 at 09:00 Doxycycline Hyclate (Vibramycin) 100 mg BID PO Last administered on 10/01/16 20 :17; Admin Dose 100 MG; Start 10/01/16 at 09:00 Furosemide (Lasix) 40 mg DAILY PO Last administered on 10/01/16 08:41; Admin Dose 40 MG; Start 10/01/16 at 09:00 Gabapentin (Neurontin) 100 mg QID PO Last administered on 10/01/16 22:58; Admin Dose 100 MG; Start 10/01/16 at 09:00 Gabapentin (Neurontin) 300 mg QID PO; Start 10/01/16 at 09:00; Stop 10/01/16 at 09:00; Status DC Magnesium Oxide (Mag-Ox) 200 mg DAILY PO Last administered on 10/01/16 08:42; Admin Dose 200 MG; Start 10/01/16 at 09:00 Sodium Chloride (NS Flush) 2 ml BID IV FLUSH Last administered on 10/01/16 20: 16; Admin Dose 2 ML; Start 10/01/16 at 09:00 Temazepam (Restoril) 30 mg HS PRN PO Last administered on 10/01/16 23:47; Admin Dose 30 MG; Start 10/01/16 at 23:45 ROS General: Fatigue, Weakness, Other (10 Point ROS done, positives noted, otherwise negative) Neuro/MS: Tremors (improved), Other (weakness, fall improved , ) Physical Exam Physical Exam PHYSICAL EXAMINATION GENERAL: This is a well-developed, well-nourished female who appears to be in no acute distress. She is alert and awake HEAD: Normocephalic without any lesion or mass noted. Facial features appear symmetric. OROPHARYNGEAL: Oropharynx without erythema or edema. NECK: Supple. No nuchal rigidity or lymphadenopathy. Trachea midline without deviation. CARDIAC: Regular rhythm, regular rate, S1 and S2 are heard. Murmur possible mild, no gallops or rubs. LUNGS: Clear to auscultation bilaterally. no wheeze, no rhonchi ABDOMEN: Soft, nontender, no organomegaly or masses. Bowel sounds are heard in all four quadrants. No rebound. No guarding. EXTREMITIES: no edema. Pulses equal bilateral. NEUROLOGICAL: Patient mood and affect appropriate. No focal tremors noted. SKIN:Warm and moist Objective Remarks Im better today A/P Assessment and Plan 1. Hypercalcemia with tremors. 2. Multiple falls. 3. Urinary tract infection. 4. Acute kidney injury with dehydration. 5. Lower extremity edema 6. Possible TIA/CVA vital signs reviewed, afebrile, BP 160 systolic, monitor, prn BP meds ordered. labs reviewed, see above. tremors improving. DVT prophylaxis with heparin UTI, antibiotics ultrasound of carotid arteries, some stenosis seen lf. > rt. side. Pt. is allergic to contrast dye. neurology following , currently reviewing tests and carotid US, appreciate expert opinion. Cause of falls? 2-D echo, normal, mild mitral regurg. LLE, Lasix PO daily, mild diuresis noted. Renal consult, appreciate Discussed With: Nurse, Family (patient ), Other (dr. Richey, seen on his behalf ) Raya Aparicio Oct 02, 2016 08:46
[2016-10-02] MEDS: DOXYCYCLINE HYCLATE 100 MG CAP PO SCH ×2 (08:54→23:07)
[2016-10-02] MEDS: GABAPENTIN 100 MG CAP PO SCH ×4 (08:54→23:06)
[2016-10-02] MEDS: CHOLECALCIFEROL (VIT D3) 400 UNIT TAB PO SCH (08:54)
[2016-10-02] MEDS: MAGNESIUM OXIDE 400 MG TAB PO SCH (08:54)
[2016-10-02] MEDS: FUROSEMIDE 40 MG TAB PO SCH (08:54)
[2016-10-02] MEDS: SODIUM CHLORIDE 0.9% FLUSH 10 ML FLUSH IV FLUSH SCH ×2 (08:55→23:08)
--- NOTE | 2016-10-02 09:41 | MB ---
cc: ALEXIS SIDHU MD DATE OF CONSULTATION 10/01/16 REASON FOR CONSULTATION Elevated BUN and creatinine for evaluation. HISTORY OF PRESENT ILLNESS This is a 71-year-old female with past medical history of chronic kidney disease, history of arthritis, bronchial asthma, hypertension, fibromyalgia, depression, gastroesophageal reflux disease who was brought to the hospital because of a history of recurrent falls. I was called to see the patient because of elevated BUN and creatinine. The patient was found to have a creatinine of 2.7 on admission. Previously, she had history of acute kidney injury and her creatinine was 2.8 in December and she possibly has chronic kidney disease, but she denies seeing any waiter/waitress first class before. She was also found to have high calcium level. She was seen once by Dr. Sandeep Truong in 2010. She denies any nausea or vomiting. There is no history of diarrhea. She has been taking ibuprofen off and on for back pain and general arthritis. Mainly she came to the hospital because of history of recurrent fall at home going on for the last 3-4 days. She has been feeling dizzy at times and there is no loss of consciousness. She denies any shortness of breath. No nausea or vomiting. No history of diarrhea. No dysuria, hematuria, did not notice any decrease in the urine output. PAST MEDICAL HISTORY 1. Hypertension, 2. Bronchial asthma, 3. Fibromyalgia, 4. Depression, 5. Gastroesophageal reflux disease, 6. Possible chronic kidney disease PAST SURGICAL HISTORY 1. Wrist surgery, 2. Hysterectomy, 3. Tonsillectomy. REVIEW OF SYSTEMS There is no history of fever. No sore throat. No headache. She has history of fall at home multiple times. There is no loss of consciousness. No nausea, vomiting. She did not have any decrease in appetite, no history of diarrhea, no dysuria, hematuria, did not notice any decrease in the urine out put. Has been taking ibuprofen off and on for a long time. SOCIAL HISTORY The patient is . There is no history of smoking or heavy alcoholism. FAMILY HISTORY Noncontributory. ALLERGIES CODEINE ERYTHROMYCIN ADHESIVES ASCORBIC ACID PENICILLIN SULFA CONTRAST MEDIA MEDICATIONS Currently 1. Magnesium oxide 200 mg once a day 2. Gabapentin 20 mg by q.i.d. 3. Lasix 40 mg once a day. 4. Doxycycline 100 mg b.i.d. 5. Vitamin D3 400 mg once a day. 6. Rocheport as needed 7. aztreonam 500 mg q. 12-hour. 8. Heparin 5000 units subcu q. 12-hour. 9. Tylenol as needed. 10. Zofran as needed. 11. Narcan as needed PHYSICAL EXAMINATION GENERAL: The patient is awake, alert. She is not in acute distress. VITAL SIGNS: Her last blood pressure 148/70, temperature 98, oxygen saturation 95%. HEENT: Pupils equally reacting to light. Nonicteric sclerae, conjunctivae normal. NECK: Supple. JVD is not elevated. LUNGS: The patient has bilateral good air entry. No rales or occasional wheezing. HEART: S1, S2, regular rhythm. ABDOMEN: Soft, lax. There is no tenderness. Bowel sounds positive. EXTREMITIES: There is no pedal edema LABORATORY DATA WBC count 7.5, hemoglobin 12.1, platelet count 188, neutrophils 56.5%, eosinophils 6.1%. Sodium 143. Potassium 3.6, chloride 107, bicarbonate 6.9, BUN 37, creatinine 2.0. Calcium is 11.4. Her creatinine on presentation was 2.7 yesterday and the calcium was 12.2. Serum protein electrophoresis is pending. Urinalysis showing that she has no proteinuria, large leukocyte esterase, WBCs 28. Urine culture is pending. Toxicology screen is not done. IMAGING STUDIES The patient had carotid ultrasound done which shows possible distal occlusion of EICA branch. CTA of the cervical vessel is recommended. Ultrasound of the kidneys was done and it shows that both kidneys are small in size, left one is 8.8 cm. Bladder was moderately distended and there was no hydronephrosis. Cervical spine CT was done which shows no acute lesion except some degenerative changes. CT scan of the brain was also done and it shows no bleeding, some chronic changes, 2.2 cm left frontal meningioma noted. ASSESSMENT/PLAN 1. Acute kidney injury with possibility of chronic kidney disease. 2. Hypercalcemia. 3. History of fall and dizziness. 4. Urinary tract infection. 5. Rule out transient ischemic attack. She is seen by neurology. She has chronic kidney disease with no proteinuria. Most likely the patient has hypertensive or renovascular disease and the acute worsening because of hypercalcemia. The hypercalcemia is probably related to excessive intake of calcium and vitamin D, but also need to rule out multiple myeloma, vitamin D level and also the PTH and follow the BUN and creatinine. I will DC the vitamin D. Thank you for the consultation. I will follow the patient while she is in the hospital. MD LAURO Lorenzana/ /7:48 PM /9:27 AM [id number]
[2016-10-02] MEDS: AZTREONAM INJ 500 MG in SODIUM CHLORIDE 0.9% INJ 100 ML IV SCH ×2 (11:57→23:24)
[2016-10-02] MEDS: ACETAMINOPHEN/HYDROcodone 325 MG/10 MG TAB PO PRN ×2 (11:57→23:12)
[2016-10-02] MEDS: HEPARIN SODIUM - SQ 10,000 UNITS/ML VIAL SQ SCH ×2 (11:57→23:24)
[2016-10-02] MEDS: SODIUM CHLOR 0.9% 1000 ML INJ 1,000 ML IV SCH ×2 (12:00→23:10)
[2016-10-02 13:23] LABS: ANION GAP 8 MEQ/L (5-15); BICARBONATE 29.5 MEQ/L (21.0-32.0); BLOOD UREA NITROGEN 21 MG/DL (7-18); CHLORIDE 103 MEQ/L (98-107); GLOMERULAR FILTRATION RATE 35 ML/MIN (>89); HDL CHOLESTEROL 45.2 MG/DL (40.0-60.0); LDL CHOLESTEROL 87 MG/DL (0-99); POTASSIUM 3.1 MEQ/L (3.5-5.1); SODIUM (NA) 140 MEQ/L (136-145)
[2016-10-02 17:07] LABS: HEMOGLOBIN A1a 1.1 %; HEMOGLOBIN A1b 0.9 %; HEMOGLOBIN F 0.9 %; HEMOGLOBIN LA1C 1.9 %; HEMOGLOBIN P3 5.4 %
--- NOTE | 2016-10-02 21:01 | HHI.NPPN ---
Subjective History of Present Illness 71-year-old female with past medical history of chronic kidney disease, history of arthritis, bronchial asthma, hypertension, fibromyalgia, depression, gastroesophageal reflux disease who was brought to the hospital because of a history of recurrent falls. I was called to see the patient because of elevated BUN and creatinine. The patient was found to have a creatinine of 2.7 on admission. Additional Remarks Patient is alert, feeling better, no SOB, no dizziness. Review of Systems General Constitutional: Fatigue Cardiovascular Cardiac: UMANZOR Objective Data Data Vital Signs Date Time Temp Pulse Resp B/P Pulse Ox O2 Delivery O2 Flow Rate FiO2 10/02/16 16:05 98.1 81 16 166/85 97 10/02/16 11:24 97.9 85 16 164/92 95 10/02/16 08:14 98.4 85 20 160/74 94 10/02/16 06:35 74 16 153/74 10/02/16 05:07 99.1 80 20 195/86 92 10/02/16 03:05 21 10/02/16 00:48 98.1 75 20 153/67 95 -: 10/01/16 0347 10/02/16 1145 Physical Exam General Appearance: No Acute Distress, Comfortable Eyes Eye Exam: Pupils Equal Throat Throat Exam: Oral Mucosa [place] & Moist Neck Neck Exam: Neck Supple, Trachea Midline Pulmonary Resp Exam: Clear Bilaterally, Breath Sounds Equal, No Distress Cardiology CV Exam: Regular, Normal Sinus Rhythm Gastrointestinal/Abdomen GI Exam: Soft, Non-Tender, Bowel Sounds Present Extremeties Extremities Exam: Trace Edema Neurologic Neuro Exam: Alert, Awake, Oriented Psychiatric Psych Exam: Appropriate Responses Assessment/Plan Assessment Summary: SHERYL/Acute Renal Failure Electrolyte Assessment: Hypercalcemia Problem List: (1) UTI (urinary tract infection) (2) Multiple falls (3) HTN (hypertension) (4) Carotid arterial disease (5) Hypercalcemia (6) Acute renal injury Plan Patient has improvement in the Creatinine. Calcium is also better. PTH was low. Need to stop Vit. D and calcium supplement. If Creatinine continue to improve, can be discharged. To follow with PCP. Problem Qualifiers (1) UTI (urinary tract infection): Qualified Code: N39.0 - Urinary tract infection without hematuria, site unspecified (2) HTN (hypertension): Qualified Code: I10 - Essential hypertension (3) Carotid arterial disease: Qualified Code: I77.9 - Bilateral carotid artery disease Sukh Moser MD Oct 02, 2016 21:01
[2016-10-02] MEDS: cloNIDine HCL 0.1 MG TAB PO PRN (23:06)
[2016-10-02] MEDS: TEMAZEPAM 15 MG CAP PO PRN (23:10)
[2016-10-03] VITALS (7 sets, daily range): BP systolic 148–192; BP diastolic 75–93; PULSE 89–107; RESP 18–20; TEMP 96.9–98.5; O2SAT 93–95
[2016-10-03] MEDS: ONDANSETRON HCL 4 MG/2 ML VIAL IVP PRN (08:55)
[2016-10-03] MEDS: FUROSEMIDE 40 MG TAB PO SCH (08:55)
[2016-10-03] MEDS: GABAPENTIN 100 MG CAP PO SCH ×2 (08:55→12:31)
[2016-10-03] MEDS: cloNIDine HCL 0.1 MG TAB PO PRN ×2 (08:55→16:00)
[2016-10-03] MEDS: DOXYCYCLINE HYCLATE 100 MG CAP PO SCH (08:55)
[2016-10-03] MEDS: MAGNESIUM OXIDE 400 MG TAB PO SCH (08:56)
[2016-10-03] MEDS: SODIUM CHLORIDE 0.9% FLUSH 10 ML FLUSH IV FLUSH SCH (08:56)
[2016-10-03] MEDS ORDERED: ASPIRIN EC 81 MG TABEC PO SCH (09:00)
--- NOTE | 2016-10-03 10:49 | HHI.FF ---
Face to Face Verification Diagnosis: (1) Hypercalcemia (2) Multiple falls (3) UTI (urinary tract infection) Physical Therapy Order: Evaluate and Treat Home Health Nursing Order: Medical education Nursing assessment with vital signs I have seen patient Arline Moser on 10/03/16. My clinical findings support the need for the requested home health care services because: Need for psychosocial assistance High risk of falls I certify that my clinical findings support that this patient is homebound because: Unsteady gait/balance Need for psychosocial assistance Shira Turner. [facility] Oct 03, 2016 10:49
[2016-10-03] MEDS ORDERED: POTASSIUM CHLORIDE 25 MEQ EFFERVESCENT TAB PO ONE (11:00)
[2016-10-03] MEDS: SODIUM CHLOR 0.9% 1000 ML INJ 1,000 ML IV SCH (11:19)
[2016-10-03] MEDS: HEPARIN SODIUM - SQ 10,000 UNITS/ML VIAL SQ SCH (12:31)
--- NOTE | 2016-10-03 12:38 | HHI.PR ---
Subjective Subjective Remarks no dizziness no cp no sob anxious to go home no fever eating okay was nauseous this morning, better now BP up, given Clonidine, now down to 160s Review of Systems Constitutional Constitutional Remarks 12 point ROS completed, negative except as noted above Vitals/Results Intake & Output 10/02/16 10/02/16 10/03/16 15:00 23:00 07:00 Intake Total 480 ml 552 ml Balance 480 ml 552 ml Intake Oral 480 ml IV Total 552 ml # Voids 1 1 # Bowel Movements 1 0 Vital Signs Vital Signs Date Time Temp Pulse Resp B/P Pulse Ox O2 Delivery O2 Flow Rate FiO2 10/03/16 08:00 98.5 100 20 188/92 93 10/03/16 04:56 98.2 94 20 148/75 94 10/03/16 00:42 96.9 107 18 192/92 95 10/03/16 00:30 96 158/75 10/03/16 00:00 18 10/02/16 20:00 96.9 94 20 188/93 98 10/02/16 16:05 98.1 81 16 166/85 97 CBC/BMP: 10/01/16 0347 10/02/16 1145 Physical Exam General General Appearance: Well Developed, Well Nourished, No Acute Distress, Comfortable Eyes Eye Exam: Pupils Equal, Pupils Reactive Ears & Nose Ears & Nose Exam: Nasal Mucosa [place] Throat Throat Exam: Oral Mucosa [place] & Moist Neck Neck Exam: Neck Supple, Trachea Midline Pulmonary Resp Exam: Clear Bilaterally, No Distress Cardiology CV Exam: Regular, Good Perfusion Gastrointestinal/Abdomen GI Exam: Soft, Non-Tender, Bowel Sounds Present, Non-Distended Musculoskeletal MS Exam: Joints Intact, Good Strength Integumentary Skin Exam: Warm, Dry Extremeties Extremities Exam: No Edema, Pedal Pulses Palpable Neurologic Neuro Exam: Alert, Awake, Oriented, Speech Clear, Moving All Extremities, No Focal Deficits Psychiatric Psych Exam: Appropriate Responses VTE Prophylaxis VTE Prophylaxis Device: SCDs Assessment/Plan Problem List: (1) Hypercalcemia (2) UTI (urinary tract infection) (3) Multiple falls (4) HTN (hypertension) (5) Carotid arterial disease (6) Acute renal injury Assessment/Plan falls etiology unclear, + UTI, R/O TIA, CVA neurology following lipid profile noted, start Lipitor 20 mg po q hs CUS results noted high grade stenosis left ext. carotid needs CTA neck but creat elevated echo done EF 60-65% EEG no seizures continue ASA Hypercalcemia, improving appreciate renal input renal function improving, poss. underlying CKD Mult. myeloma work up in progress. PTH results noted Vit D level pending Vit D PO d/c'd BP uncontrolled Continue Clonidine PRN continue Lasix UTI continue abx UC mixed gram pos. ? contaminant PT eval and tx Heparin for DVT Prophylaxis CM for dc planning, [facility] CMP in am D/W RN D/W Dr. Richey D/W pt This patient was seen by myself and Dr. Richey, this note is written on his behalf. Problem Qualifiers (1) UTI (urinary tract infection): Qualified Code: N39.0 - Urinary tract infection without hematuria, site unspecified (2) HTN (hypertension): Qualified Code: I10 - Essential hypertension (3) Carotid arterial disease: Qualified Code: I77.9 - Bilateral carotid artery disease Shira Turner Oct 03, 2016 12:38
[2016-10-03 15:05] LABS: BICARBONATE 31.6 MEQ/L (21.0-32.0)
[2016-10-03 15:08] LABS: POTASSIUM 3.7 MEQ/L (3.5-5.1)
[2016-10-03] MEDS ORDERED: ASPI81TA11 PO (16:33)
[2016-10-03 16:43] LABS: ALBUMIN SPE 4.4 GM/DL (3.50-5.00); ALPHA 1 GLOBULIN 0.24 GM/DL (0.11-0.29); ALPHA 2 GLOBULIN 0.94 GM/DL (0.22-1.00); BETA GLOBULINS (SPE) 0.89 GM/DL (0.53-1.03)
[2016-10-03] MEDS ORDERED: ATORVASTATIN 20 MG TAB PO SCH (21:00)
--- NOTE | 2016-10-05 16:49 | HHI.DS ---
Discharge Summary Admission Date Sep 30, 2016 at 21:25 Discharge Date: Oct 03, 2016 Admitting Diagnosis multiple falls rule out TIA versus CVA, hypercalcemia Brief History This was a 71-year-old white female who had noted approximately four falls within the past few days. She also complained of some shaking of her extremities with special attention to her hands and arms that occurs off and on. She stated she had no warning to her symptoms. She also complained of a mild amount of dizziness but stated that she was not dizzy all the time. The last fall the patient was standing at her counter in the kitchen drinking some tea. She stated that she fell backwards and hit the floor. She denied losing any consciousness, denies hitting her head. She stated then that she decided she needed to come in for evaluation. The patient denied any chest pain. No shortness of breath. No fever, no recent infection or antibiotic use. The patient stated takes her medications as prescribed. She denied any nausea, vomiting, diarrhea or constipation. Since the fall the patient did have some musculoskeletal aches and pains in her back and hip area. The patient also noted some mild cough with seasonal allergies recently. CBC/BMP: 10/01/16 0347 10/03/16 1418 Significant Findings Laboratory Tests Test 10/03/16 14:18 Creatinine 1.17 MG/DL (0.50-1.00) Estimat Glomerular Filtration 46 ML/MIN (>89) Rate Imaging Last Impressions Renal Ultrasound 10/01/16 0000 Signed Impressions: Service Date/Time: Saturday, October 01, 2016 15:55 - CONCLUSION: No acute findings in the kidneys. Asher Donis MD Carotid Artery Ultrasound 10/01/16 0000 Signed Impressions: Service Date/Time: Saturday, October 01, 2016 15:37 - CONCLUSION: 1. Calcified atherosclerotic plaque in both carotid systems, left greater than right. 2. Doppler velocities and ratios suggest a moderate, 50-69%% stenosis in the left internal and a possible high-grade stenosis of the left external carotid arteries. 3. High resistance waveform in the right vertebral suggest distal occlusion or termination in a PICA branch. Left vertebral is sonographically normal. 4. CTA of the cervical vessels is recommended for anatomic characterization. Piter Basilio MD Head CT 09/30/16 194 Signed Impressions: Service Date/Time: Friday, September 30, 2016 20:08 - CONCLUSION: 1. No bleed or other acute intracranial abnormality. 2. Chronic appearing white matter changes. 3. 2.2 cm left frontal meningioma again noted, not significantly changed in size. Cain Chester MD Chest X-Ray 09/30/161940 Signed Impressions: Service Date/Time: Friday, September 30, 2016 19:56 - CONCLUSION: Mild left base atelectasis. No other acute cardiopulmonary disease demonstrated. Cain Chester MD Cervical Spine CT 09/30/161940 Signed Impressions: Service Date/Time: Friday, September 30, 2016 20:08 - CONCLUSION: No fracture or acute appearing malalignment of the cervical spine. Degenerative changes as above. Cain Chester MD Thoracic Spine X-Ray 09/30/16 0000 Signed Impressions: Service Date/Time: Friday, September 30, 2016 20:00 - CONCLUSION: Degenerative/chronic appearing kyphoscoliosis. No fracture or subluxation of the thoracic spine. Cain Chester MD Pelvis X-Ray 09/30/16 0000 Signed Impressions: Service Date/Time: Friday, September 30, 2016 19:57 - CONCLUSION: Intact pelvis. Cain Chester MD Lumbar Spine X-Ray 09/30/16 0000 Signed Impressions: Service Date/Time: Friday, September 30, 2016 19:59 - CONCLUSION: No fracture or subluxation of the lumbar spine. Mid and lower lumbar degenerative changes as above. Cain Chester MD PE at Discharge General Appearance: Well Developed, Well Nourished, No Acute Distress, Comfortable Eyes Eye Exam: Pupils Equal, Pupils Reactive Ears & Nose Ears & Nose Exam: Nasal Mucosa [place] Throat Throat Exam: Oral Mucosa [place] & Moist Neck Neck Exam: Neck Supple, Trachea Midline Pulmonary Resp Exam: Clear Bilaterally, No Distress Cardiology CV Exam: Regular, Good Perfusion Gastrointestinal/Abdomen GI Exam: Soft, Non-Tender, Bowel Sounds Present, Non-Distended Musculoskeletal MS Exam: Joints Intact, Good Strength Integumentary Skin Exam: Warm, Dry Extremeties Extremities Exam: No Edema, Pedal Pulses Palpable Neurologic Neuro Exam: Alert, Awake, Oriented, Speech Clear, Moving All Extremities, No Focal Deficits Psychiatric Psych Exam: Appropriate Responses VTE Prophylaxis VTE Prophylaxis Device: [facility] Hospital Course These are the diagnoses that were used for the treatment and plan a care for this patient during this hospital stay. (1) Hypercalcemia (2) UTI (urinary tract infection) (3) Multiple falls (4) HTN (hypertension) (5) Carotid arterial disease (6) Acute renal injury Initially seen per [employer], with Dr. Richey following Patient's falls falls etiology unclear, + UTI, R/O TIA, CVA , or possibly hypercalcemia. neurology consult did and assisting with the plan of care lipid profile noted, start Lipitor 20 mg po q hs CUS results noted high grade stenosis left ext. carotid needs CTA neck but creatitine elevated and patient is allergic to contrast media. echo evaluated and done EF 60-65% EEG no seizures continue ASA Hypercalcemia, improving appreciate renal input renal function improving, poss. underlying CKD Multiple myeloma work up in progress. PTH results noted Vit D level pending Vit D PO d/c'd per recommendation of neurology BP uncontrolled Continue Clonidine PRN continue Lasix by mouth UTI continue abx UC mixed gram pos. ? contaminant possible, but continued treatment regimen PT eval and tx Heparin for DVT Prophylaxis takes Pravastatin at home, doesn't know dosage will dc Lipitor Patient was seen, examined by myself, Dr Richey, today Discussed with patient Patient refusing MRI Discussed with neurologist Renal function looking improving but still she has some risk of using contrast Discharge home today on baby aspirin. Further testing can be done on an outpatient basis since patient is medically stable. Outpatient noncontrast MRI for both the brain and the carotid arteries Follow with neurologist in 1 week Pt Condition on Discharge: Stable Discharge Disposition: Disch w/ Home Health Serv Discharge Instructions DIET: Follow Instructions for: Heart Healthy Diet Activities you can perform: Weight Bearing as Franco Other Activity Instructions: HIGH FALL RISK Follow up Referrals: Nephrology - [address] SIDHU Neurology - 1 Week with Doris Mc MD New Medications: Aspirin DR (Aspirin EC) 81 Mg Tabdr 81 MG PO DAILY carotid disease #30 Ref 6 TAB Continued Medications: B-Complex W/ C & Folic Acid (B-Complex Balanced) 1 Tab Vitamin E (Topical) (Vitamin E) 100 Unit/Gm Cre Zinc Gluconate (Zinc) 50 Mg Tab Discontinued Medications: Calcium Citrate-Vitamin D (Calcium Citrate + D) 315-200 Mg-Unit Tab 1 TAB PO DAILY TAB Gabapentin (Gabapentin) 300 Mg Cap 300 MG PO QID #90 Ref 0 CAP Bckvpkreqhu-Sqvlxommibm-Els C- (Glucosamine Chondroitin) 1 Cap Cap Hydrochlorothiazide (Hydrochlorothiazide) 12.5 Mg Cap 12.5 MG PO DAILY #30 Ref 0 CAP Hydrocodone-Acetaminophen (Hydrocodone-Acetaminophen) 10-325 mg Tab 1 TAB PO Q4H PRN PAIN Ref 0 TAB Magnesium (Magnesium) 200 Mg Tab 200 MG PO DAILY TAB Temazepam (Restoril) 30 Mg Cap 30 MG PO HS PRN INSOMNIA #30 Ref 0 CAP Vitamin A (Vitamin A) 25,000 Unit Cap 30439 UNITS PO DAILY Nutritional Supplement Ref 0 CAP Raya Aparicio [facility] Oct 05, 2016 16:49
== END 2016-10-03 17:14 | disposition home health service (06) | DRG 69 ==
LOC: NEPE 18:39 → NEDA 21:25 → OBSVTOIN 21:25 → NEPFCDU 10-01 02:50 → N05A 10-02 19:35
PROVIDERS: ADMIT Specialist; ATTEND Specialist
DX: G45.8 Other transient cerebral ischemic attacks and related syndromes (principal); N39.0 Urinary tract infection, site not specified; E83.52 Hypercalcemia; N17.9 Acute kidney failure, unspecified; G62.9 Polyneuropathy, unspecified; I12.9 Hypertensive chronic kidney disease with stage 1 through stage 4 chronic kidney disease, or unspecified chronic kidney disease; G89.29 Other chronic pain; M19.90 Unspecified osteoarthritis, unspecified site; M79.7 Fibromyalgia; R29.6 Repeated falls; J45.909 Unspecified asthma, uncomplicated; R20.0 Anesthesia of skin; G43.909 Migraine, unspecified, not intractable, without status migrainosus; F32.9 Major depressive disorder, single episode, unspecified; Z88.5 Allergy status to narcotic agent; Z88.0 Allergy status to penicillin; Z88.2 Allergy status to sulfonamides; Z88.7 Allergy status to serum and vaccine; Z91.041 Radiographic dye allergy status; J30.2 Other seasonal allergic rhinitis; K21.9 Gastro-esophageal reflux disease without esophagitis; E86.0 Dehydration; R25.1 Tremor, unspecified; R60.0 Localized edema; Z96.651 Presence of right artificial knee joint; N18.9 Chronic kidney disease, unspecified; M54.9 Dorsalgia, unspecified; R11.0 Nausea; I34.0 Nonrheumatic mitral (valve) insufficiency; W19.XXXA Unspecified fall, initial encounter; Y92.000 Kitchen of unspecified non-institutional (private) residence as the place of occurrence of the external cause
CPT/HCPCS: 70450; 71010; 72072; 72100; 72125; 72170; 76775; 80048; 80053; 80061; 81001; 82306; 82550; 82552; 82652; 83036; 83970; 84100; 84165; 84443; 84484; 85025; 85060; 85610; 85652; 85730; 87086; 93005; 93306; 93880; 95819; J1644; J2405; J7030

== ENCOUNTER 2018-01-29 23:23 | Inpatient (IN) ==
[2018-01-29] MEDS ORDERED: Sod Chloride 0.9% Inj 100 ML IV.SIG SCH (23:45)
[2018-01-29] MEDS ORDERED: Sod Chloride 0.9% Inj 1,000 ML IV.SIG SCH ×2 (23:45)
[2018-01-30 00:11] LABS: Baso # (Auto) 0.1 th/mm3 (0.0-0.2); Baso % (Auto) 0.4 % (0.0-2.0); Eos # (Auto) 0.4 th/mm3 (0.0-0.4); Eos % (Auto) 2.6 % (0.0-4.0); Hematocrit 37.3 % (35.0-46.0); Hemoglobin 12.2 gm/dL (11.6-15.3); Lymph # (Auto) 1.8 th/mm3 (1.0-4.8); Lymph % (Auto) 12.9 % (9.0-44.0); Mean Corpuscular HGB Conc 32.6 % (32.0-36.0); Mean Corpuscular Hemoglobin 26.5 pg (27.0-34.0); Mean Corpuscular Volume 81.2 fL (80.0-100.0); Mean Platelet Volume 9.5 fL (7.0-11.0); Mono # (Auto) 0.9 th/mm3 (0.0-0.9); Mono % (Auto) 6.4 % (0.0-8.0); Neut # (Auto) 11.1 th/mm3 (1.8-7.7); Neut % (Auto) 77.7 % (16.0-70.0); Platelet Count 229 th/mm3 (150-450); Red Cell Distribution Width 20.6 % (11.6-17.2); White Blood Count 14.3 th/mm3 (4.0-11.0)
[2018-01-30 00:17] LABS: Activated Partial Thrombo Time 22.4 sec (24.3-30.1); Prothrombin Time 10.6 sec (9.8-11.6)
--- NOTE | 2018-01-30 00:29 | XR ---
EXAM DATE: 01/30/2018 12:19 AM EDT AGE/SEX: 72 years / Female INDICATIONS: Fever. Congestion. CLINICAL DATA: This is the patient's initial encounter. Patient reports that signs and symptoms have been present for 2 days and indicates a pain score of 5/10. MEDICAL/SURGICAL HISTORY: None. None. COMPARISON: Prior chest x-ray from 09/30/2016.. FINDINGS: A single AP view of the chest demonstrates the lungs to be symmetrically aerated without evidence of mass, infiltrate or effusion. The cardiomediastinal contours are unremarkable. Osseous structures a re intact. CONCLUSION: No acute abnormality is seen. Electronically signed by: Cain De Dios MD 01/30/2018 12:28 AM EDT
[2018-01-30 00:30] LABS: Alanine Aminotransferase 21 U/L (10-53); Albumin 3.9 g/dL (3.4-5.0); Anion Gap 9 meq/L (5-15); Aspartate Aminotransferase 24 U/L (15-37); Blood Urea Nitrogen 36 mg/dL (7-18); Calcium 9.4 mg/dL (8.5-10.1); Carbon Dioxide 21.9 meq/L (21.0-32.0); Chloride 112 meq/L (98-107); Glomerular Filtration Rate 26 mL/min (>89); Glucose,Random 115 mg/dL (74-106); Lipase 123 U/L (73-393); Magnesium 2.1 mg/dL (1.5-2.5); Potassium 4.3 meq/L (3.5-5.1); Sodium 143 meq/L (136-145)
[2018-01-30 00:34] LABS: Alkaline Phosphatase 96 U/L (45-117); Creatine Kinase 247 U/L (26-192); Total Protein 7.4 g/dL (6.4-8.2)
[2018-01-30 00:46] LABS: CKMB Percent 1.7 % (0.0-4.0); Creatine Kinase MB 4.2 ng/mL (0.5-3.6)
--- NOTE | 2018-01-30 01:32 | CT ---
EXAM DATE: 01/30/2018 1:22 AM EDT AGE/SEX: 72 years / Female INDICATIONS: Altered mental status. CLINICAL DATA: This is the patient's initial encounter. Patient reports that signs and symptoms have been present for 1 day and indicates a pain score of 0/10. MEDICAL/SURGICAL HISTORY: Hypertension. None. RADIATION DOSE: 56.35 CTDI (mGy) COMPARISON: [facility], CT BRAIN W/O CONTRAST, 04/30/2017. [facility], CT BRAIN W/O CONTRAST, 02/05/2011. . TECHNIQUE: CT of the head without contrast. Using automated exposure control and adjustment of the mA and/or kV according to patient size, radiation dose was kept as low as reasonably achievable to ob tain optimal diagnostic quality images. DICOM format image data is available electronically for revi ew and comparison. FINDINGS: Cerebrum: The ventricles are normal for age. There is mild widening of the cortical sulci. No evide nce of midline shift, mass lesion, hemorrhage or acute infarction. There is decreased density in the cerebral white matter. No extraaxial fluid collections are seen. There is a 2 cm peripherally calcif ied mass seen at the superior medial left frontal region underlying mass effect is not seen. This lik tammy represents a calcified meningioma. Posterior Fossa: The cerebellum and brainstem are intact. The 4th ventricle is midline. The cerebe llopontine angle is unremarkable. Extracranial: The visualized portion of the orbits is intact. Skull: The calvaria is intact. No evidence of skull fracture. CONCLUSION: 1. No acute abnormality is seen. 2. Stable 2 cm densely calcified mass in the superior medial left frontal region likely related to a meningioma. 3. Decreased density in the cerebral white matter likely related to small vessel ischemic change. 4. Mild cortical atrophy. . Electronically signed by: Cain De Dios MD 01/30/2018 1:31 AM EDT
--- NOTE | 2018-01-30 01:40 | CT ---
EXAM DATE: 01/30/2018 1:26 AM EDT AGE/SEX: 72 years / Female INDICATIONS: Abdominal pain. CLINICAL DATA: This is the patient's initial encounter. Patient reports that signs and symptoms have been present for 1 day and indicates a pain score of 4/10. MEDICAL/SURGICAL HISTORY: Hypertension. None. RADIATION DOSE: 12.95 CTDI (mGy) COMPARISON: No prior exams available for comparison. TECHNIQUE: Multiple contiguous axial images were obtained through the abdomen. Images were obtained using multiple row detector helical technique. Using automated exposure control and adjustment of the mA and/or kV according to patient size, radiation dose was kept as low as reasonably achievable to o btain optimal diagnostic quality images. DICOM format image data is available electronically for rev iew and comparison. FINDINGS: Lower chest: The visualized lower lungs are clear. Coronary artery calcifications are present. Liver: The liver has a homogeneous density . There is a 0.7 cm hypodensity seen at the superior aspec t of the right lobe likely related to a cyst or hemangioma. The gallbladder appears distended. There is some patient motion blurring seen over the region of the gallbladder. Spleen: Homogeneous density without enlargement. Pancreas: Unremarkable without mass or calcification. Kidneys: Normal in size and shape. No evidence of mass or hydronephrosis. Adrenal Glands: Unremarkable. Aorta: The aorta and proximal iliac vessels are grossly unremarkable without aneurysmal dilation. A therosclerotic calcifications are present. Bowel/Mesentery: The bowel loops are grossly unremarkable. There is a mild hiatal hernia. There are colonic diverticula particularly in the sigmoid region without inflammatory change. The cecum and sig moid colon have a normal configuration. Abdominal Wall: Intact. Retroperitoneum: No evidence of adenopathy in the retrocrural, para-aortic, or deep pelvic regions. Bladder: Contours are smooth. Reproductive Organs: The patient appears to be status post hysterectomy. Inguinal: The inguinal region is unremarkable without evidence of adenopathy. Bony Structures: There is degenerative change at the lumbar spine. CONCLUSION: 1. Distended gallbladder. 2. Mild hiatal hernia. 3. Colonic diverticula. Electronically signed by: Cain De Dios MD 01/30/2018 1:38 AM EDT
--- NOTE | 2018-01-30 01:44 | ED ---
HPI General Chief Complaint: Altered Mental Status Stated Complaint: Change in mental status Time Seen by Provider: 01/29/18 23:29 Source: family and EMS Mode of arrival: EMS Limitations: altered mental status History of Present Illness HPI narrative: Vision is a 72-year-old female that was brought in by [facility] for altered mental status. As per report found her sitting on the floor next to her bed altered about 40 minutes prior to arrival. Last time she was seen normal was in the a.m. The patient per EMS was covered in feces and urine and was sitting and it not responding to questions but awake. Alert and oriented 4 at baseline. EMS also reports that her blood pressure was 190 systolic. She does have hypertension. She is not able to provide any additional history. MD complaint: altered mental status Associated symptoms: denies other symptoms, foul smelling urine and diarrhea Related Data Home Medications Medication Instructions Recorded Confirmed Unable to Obtain Home Meds 01/30/18 01/30/18 Allergies Allergy/AdvReac Type Severity Reaction Status Date / Time azithromycin Allergy Severe SEVER N/V Verified 01/30/18 05:17 codeine Allergy Severe N/V Verified 01/30/18 05:17 erythromycin base Allergy Severe SEVER N/V Verified 01/30/18 05:17 adhesive Allergy Intermediate PT Verified 01/30/18 05:17 ALLGERIC TO PAPER TAPE ascorbic acid Allergy Intermediate HIVES Verified 01/30/18 05:17 penicillin G Allergy Intermediate HIVES Verified 01/30/18 05:17 Sulfa (Sulfonamide Allergy Intermediate HIVES Verified 01/30/18 05:17 Antibiotics) NAUSEA vitamin B complex and C Allergy Intermediate HIVES Verified 01/30/18 05:17 vitamin B complex no.3 Allergy Intermediate HIVES Verified 01/30/18 05:17 diatrizoate meglumine Allergy Mild Rash Verified 01/30/18 05:17 gadobenic acid Allergy Mild Rash Verified 01/30/18 05:17 gadodiamide Allergy Mild Rash Verified 01/30/18 05:17 gadoteridol Allergy Mild Rash Verified 01/30/18 05:17 iodixanol Allergy Mild Rash Verified 01/30/18 05:17 iohexol Allergy Mild Rash Verified 01/30/18 05:17 tetanus and diphtheria Allergy Mild Rash Verified 01/30/18 05:17 toxoids Review of Systems ROS Unobtainable ROS Unobtainable: unobtainable due to mental status [facility] Medical History Medical History Hypertension (Acute) Surgical History Surgical History History of knee replacement (Acute) Social History Social History Substance History: No History of Abuse Smoking Status: Never smoker How Often Do You Have a Drink Containing Alcohol: Monthly or less Recent Travel in [facility] within the Last 8 Weeks: No Recent Out of Country Travel within the Last 8 Weeks: No Immunization History Tetanus Immunization: Unable to Assess Hx Influenza Vaccine This Season: Unable to Assess Exam Narrative Exam Narrative: GENERAL: Alert not oriented to place or time. Response to verbal commands. SKIN: Focused skin assessment warm/dry. Covered in feces HEAD: Atraumatic. Normocephalic. EYES: Pupils equal and round. No scleral icterus. No injection or drainage. ENT: No nasal bleeding or discharge. Mucous membranes pink and moist. Edentulous NECK: Trachea midline. No JVD. CARDIOVASCULAR: Regular rate and rhythm. No murmur appreciated. RESPIRATORY: No accessory muscle use. Clear to auscultation. Breath sounds equal bilaterally. GASTROINTESTINAL: Abdomen soft, non-tender, nondistended. Hepatic and splenic margins not palpable. MUSCULOSKELETAL: No obvious deformities. No clubbing. No cyanosis. No edema. PSYCHIATRIC: Appropriate mood and affect; insight and judgment normal. Neuro General: awake, gait normal, tone normal, moves all extremities, no focal motor deficits, CN's II-XI intact bilaterally and confused Cranial Nerves: CN's II-XI intact bilaterally, PERRL and EOM intact bilaterally Cognition: abnormal cognition Speech: speech normal Gait: normal gait Motor: muscle tone normal throughout Sensory Exam: no sensory deficits noted Course Reevaluation(s) Reevaluation #1: Patient alert and oriented at baseline at this time at bedside. Time: 01:42 Initial Documented Vital Signs Temperature 99.1 F 01/29/18 23:56 Pulse Rate 94 H 01/29/18 23:56 Respiratory Rate 20 01/29/18 23:56 Blood Pressure 139/81 01/29/18 23:56 Pulse Oximetry 98 01/29/18 23:56 Last Documented Vital Signs Temperature 97.9 F 01/30/18 19:31 Pulse Rate 93 H 01/30/18 19:31 Respiratory Rate 21 01/30/18 19:31 Blood Pressure 229/96 H 01/30/18 19:31 Pulse Oximetry 98 01/30/18 19:31 Critical Care Time Critical Care Time: Yes Total Critical Care Time: 30 Attestation: Aggregate critical care time was 30 minutes. Time to perform other separately billable procedures was not included in the critical care time. My time did not include minutes spent treating any other patients simultaneously or on activities that did not directly contribute to the patient's treatment. The services I provided to this patient were to treat and/or prevent clinically significant deterioration that could result in: permanent disability and or I provided critical care services requiring my management, as noted below: Chart data review, documentation time, medication orders and management, vital sign assessments/reviewing monitor data, ordering and reviewing lab tests, ordering and interpreting/reviewing x-rays and diagnostic studies, care of the patient and discussion of the patient with the admitting physicians. Medical Decision Making MDM Narrative Medical Screen Exam Complete: Yes Emergency Medical Condition: Yes Lab Data Result diagrams: 01/29/18 23:40 01/29/18 23:40 Lab Results 01/29/18 01/29/18 01/29/18 Range/Units 23:40 23:40 23:40 WBC 14.3 H (4.0-11.0) th/mm3 RBC 4.60 (4.00-5.30) mil/mm3 Hgb 12.2 (11.6-15.3) gm/dL Hct 37.3 (35.0-46.0) % MCV 81.2 (80.0-100.0) fL MCH 26.5 L (27.0-34.0) pg MCHC 32.6 (32.0-36.0) % RDW 20.6 H (11.6-17.2) % Plt Count 229 (150-450) th/mm3 MPV 9.5 (7.0-11.0) fL Neut % (Auto) 77.7 H (16.0-70.0) % Lymph % (Auto) 12.9 (9.0-44.0) % [place] % (Auto) 6.4 (0.0-8.0) % Eos % (Auto) 2.6 (0.0-4.0) % Baso % (Auto) 0.4 (0.0-2.0) % Neut # (Auto) 11.1 H (1.8-7.7) th/mm3 Lymph # (Auto) 1.8 (1.0-4.8) th/mm3 [place] # (Auto) 0.9 (0.0-0.9) th/mm3 Eos # (Auto) 0.4 (0.0-0.4) th/mm3 Baso # (Auto) 0.1 (0.0-0.2) th/mm3 WBC Differential . Differential Comment Auto diff final PT 10.6 (9.8-11.6) sec INR 1.0 Ratio APTT 22.4 L (24.3-30.1) sec Sodium 143 (136-145) meq/L Potassium 4.3 (3.5-5.1) meq/L Chloride 112 H (98-107) meq/L Carbon Dioxide 21.9 (21.0-32.0) meq/L Anion Gap 9 (5-15) meq/L BUN 36 H (7-18) mg/dL Creatinine 1.90 H (0.50-1.00) mg/dL Estimated GFR 26 L (>89) mL/min Random Glucose 115 H (74-106) mg/dL Lactic Acid (0.4-2.0) mmol/L Calcium 9.4 (8.5-10.1) mg/dL Magnesium 2.1 (1.5-2.5) mg/dL Total Bilirubin 0.5 (0.2-1.0) mg/dL AST 24 (15-37) U/L ALT 21 (10-53) U/L Alkaline Phosphatase 96 (45-117) U/L Total Creatine Kinase 247 H (26-192) U/L CK-MB (CK-2) 4.2 H (0.5-3.6) ng/mL CK-MB (CK-2) % 1.7 (0.0-4.0) % Troponin I Less than 0.02 L (0.02-0.05) ng/mL Total Protein 7.4 (6.4-8.2) g/dL Albumin 3.9 (3.4-5.0) g/dL Lipase 123 (73-393) U/L Urine Color (Yellw/Straw) Urine Clarity (Clear) Urine pH (5.0-8.5) Ur Specific [place] (1.002-1.035) Urine Protein (Neg-Trace) mg/dL Urine Glucose (UA) (Negative) mg/dL Urine Ketones (Negative) mg/dL Urine Occult Blood (Negative) Urine Nitrate (Negative) Urine Bilirubin (Negative) Urine Urobilinogen (Less than 2) mg/dL Ur Leukocyte Esterase (Negative) Urine RBC (0-3) /hpf Urine WBC (0-5) /hpf Urine Bacteria (None) /hpf Hyaline Casts (0-3) /lpf Urine Mucus (Occasional) /lpf Micro UA Comment Urine Culture Comments 01/29/18 01/30/18 01/30/18 Range/Units 23:40 04:04 15:30 WBC (4.0-11.0) th/mm3 RBC (4.00-5.30) mil/mm3 Hgb (11.6-15.3) gm/dL Hct (35.0-46.0) % MCV (80.0-100.0) fL MCH (27.0-34.0) pg MCHC (32.0-36.0) % RDW (11.6-17.2) % Plt Count (150-450) th/mm3 MPV (7.0-11.0) fL Neut % (Auto) (16.0-70.0) % Lymph % (Auto) (9.0-44.0) % [place] % (Auto) (0.0-8.0) % Eos % (Auto) (0.0-4.0) % Baso % (Auto) (0.0-2.0) % Neut # (Auto) (1.8-7.7) th/mm3 Lymph # (Auto) (1.0-4.8) th/mm3 [place] # (Auto) (0.0-0.9) th/mm3 Eos # (Auto) (0.0-0.4) th/mm3 Baso # (Auto) (0.0-0.2) th/mm3 WBC Differential Differential Comment PT (9.8-11.6) sec INR Ratio APTT (24.3-30.1) sec Sodium (136-145) meq/L Potassium (3.5-5.1) meq/L Chloride (98-107) meq/L Carbon Dioxide (21.0-32.0) meq/L Anion Gap (5-15) meq/L BUN (7-18) mg/dL Creatinine (0.50-1.00) mg/dL Estimated GFR (>89) mL/min Random Glucose (74-106) mg/dL Lactic Acid 1.1 (0.4-2.0) mmol/L Calcium (8.5-10.1) mg/dL Magnesium (1.5-2.5) mg/dL Total Bilirubin (0.2-1.0) mg/dL AST (15-37) U/L ALT (10-53) U/L Alkaline Phosphatase (45-117) U/L Total Creatine Kinase (26-192) U/L CK-MB (CK-2) (0.5-3.6) ng/mL CK-MB (CK-2) % (0.0-4.0) % Troponin I 0.03 (0.02-0.05) ng/mL Total Protein (6.4-8.2) g/dL Albumin (3.4-5.0) g/dL Lipase (73-393) U/L Urine Color Yellow (Yellw/Straw) Urine Clarity Clear (Clear) Urine pH 5.0 (5.0-8.5) Ur Specific [place] 1.011 (1.002-1.035) Urine Protein Negative (Neg-Trace) mg/dL Urine Glucose (UA) 150 H (Negative) mg/dL Urine Ketones Trace H (Negative) mg/dL Urine Occult Blood Small H (Negative) Urine Nitrate Negative (Negative) Urine Bilirubin Negative (Negative) Urine Urobilinogen Less than 2 (Less than 2) mg/dL Ur Leukocyte Esterase Small H (Negative) Urine RBC 1 (0-3) /hpf Urine WBC 2 (0-5) /hpf Urine Bacteria Rare H (None) /hpf Hyaline Casts 1 (0-3) /lpf Urine Mucus Few H (Occasional) /lpf Micro UA Comment Culture not ind Urine Culture Comments Culture not ind Imaging Data Radiologist's impression: Chest X-Ray 01/29/18 23:37 CONCLUSION: No acute abnormality is seen. Abdomen/Pelvis CT 01/30/18 00:00 CONCLUSION: 1. Distended gallbladder. 2. Mild hiatal hernia. 3. Colonic diverticula. Head CT 01/30/18 00:00 CONCLUSION: 1. No acute abnormality is seen. 2. Stable 2 cm densely calcified mass in the superior medial left frontal region likely related to a meningioma. 3. Decreased density in the cerebral white matter likely related to small vessel ischemic change. 4. Mild cortical atrophy. . Head MRI 01/30/18 00:00 CONCLUSION: 1. Stable 2.3 cm left frontal high convexity meningioma. 2. Senescent changes with mild to moderate periventricular white matter ischemic demyelination. 3. No acute abnormality. ECG Data Attestation: I personally reviewed and interpreted this ECG as follows: Interpretation: Sinus rhythm rate 87 bpm normal GA interval QTC 397. Nonspecific ST-T wave abnormalities. No signs of acute ischemia. Discharge Plan Discharge Disposition Patient Disposition: 30 Still Patient Discharge Condition Condition: Fair Discharge Details Diagnosis: Altered mental status, Toxic metabolic encephalopathy, SHERYL (acute kidney injury ), Diarrhea Physicians Team ED Provider: Uday Beyer Primary Care Provider: Chen Amos Attending Provider: Preston Montgomery Status ED Status: Left Department Discharge Information Discharge Date/Time: 01/30/18 07:40
[2018-01-30 04:34] LABS: Bacteria,Urine Rare /hpf; Bilirubin,Urine Negative (Negative); Clarity,Urine Clear (Clear); Color,Urine Yellow (Yellw/Straw); Glucose,Urine (UA) 150 mg/dL (Negative); Hyaline Casts,Urine 1 /lpf (0-3); Leukocyte Esterase,Urine Small (Negative); Mucus,Urine Few /lpf (Occasional); Nitrite,Urine Negative (Negative); Specific Gravity,Urine 1.011 (1.002-1.035)
[2018-01-30] MEDS ORDERED: Bisacodyl 10 MG Supp RECTAL PRN (05:05)
[2018-01-30] MEDS ORDERED: Temazepam 15 MG Capsule PO PRN (05:05)
[2018-01-30] MEDS ORDERED: Acetaminophen 325 MG Tablet PO PRN (05:05)
--- NOTE | 2018-01-30 11:04 | ECG ---
Date Performed: 01/29/2018 Time Performed: 23:34:09 PTAGE: 72 years EKG: Sinus rhythm MODERATE ST DEPRESSION ABNORMAL ECG PREVIOUS TRACING : 09/30/2016 21.09 Since the previous tracing, no significant change noted DOCTOR: Tyler Frank Interpretating Date/Time 01/30/2018 11:03:47
--- NOTE | 2018-01-30 11:49 | P.HPIM ---
History of Present Illness Primary Care Physician: Chen Amos History of Present Illness: Mrs. Moser is a 72-year-old female. She was brought in secondary to mental confusion and found to have urinary tract infection with sepsis. This morning she has some improvement in her alertness but she remains disoriented. History is difficult. The patient is is feeling better than last night, but I do not know how reliable this is. Sepsis is still present. Inpatient Certification: I certify that the inpatient services were ordered in accordance with Medicare regulations governing the order. This includes certification that hospital inpatient services are reasonable and necessary and in the case of services not specified as inpatient-only under 42 CFR 419.22(n), that they are appropriately provided as inpatient services in accordance to with the 2-midnight benchmark under 43 CFR 412.3(e) Estimated Total Length of Stay (Days): 2 Plans for Post Hospital Care: Not yet determined Review of Systems unobtainable due to mental condition, unobtainable due to mental status PMFSH - History History Provided By: Patient - Medical History Medical History: Medical History (Last Reviewed 01/30/18 @ 01:40 by Uday Beyer DO) Hypertension - Surgical History Surgical History: Surgical History (Last Reviewed 01/30/18 @ 01:40 by Uday Beyer DO) History of knee replacement - Family History Family History: Family History (Last Updated 01/30/18 @ 11:43 by Preston Montgomery MD) Other Hypertension - Tobacco History Smoking Status: Never smoker - Alcohol History How Often Do You Have a Drink Containing Alcohol: Monthly or less - Substance Use History Substance History: No History of Abuse - Travel History Recent Travel in the [place] Within the Last 8 Weeks: No Recent Travel Out of the Country Within the Last 8 Weeks: No - Immunization History Tetanus Immunization: Unable to Assess Hx Influenza Vaccine This Season: Unable to Assess Medications and Allergies Active Medications: Active Medications Acetaminophen (Tylenol) 650 mg PO Q4H PRN PRN Reason: Temp > 100.4 Al Hydroxide/Mg Hydroxide (Milk Of Magnesia Liq) 30 ml PO Q12H PRN PRN Reason: Mild Constipation Bisacodyl (Dulcolax Supp) 10 mg RECTAL DAILY PRN PRN Reason: SEVERE CONSITIPATION Sodium Chloride (Ns Inj) 1,000 mls @ 0 mls/hr IV.SIG .Q0M URSZULA Last Admin: 01/30/18 02:50 Dose: 1,000 mls/hr Sodium Chloride (Ns Inj) 1,000 mls @ 0 mls/hr IV.SIG .Q0M URSZULA Last Admin: 01/30/18 02:50 Dose: 1,000 mls/hr Sodium Chloride (Ns Inj) 100 mls @ 0 mls/hr IV.SIG .Q0M URSZULA Cefepime HCl 1,000 mg/ Sodium (Chloride) 100 mls @ 200 mls/hr IV.SIG Q12H URSZULA Sodium Chloride (Ns Inj) 1,000 mls @ 100 mls/hr IV.CONT .Q10H URSZULA Lactulose (Lactulose Liq) 30 ml PO DAILY PRN PRN Reason: SEVERE CONSITIPATION Ondansetron HCl (Zofran Inj) 4 mg IV.PUSH Q6H PRN PRN Reason: NAUSEA OR VOMITING Senna/Docusate Sodium (Roxanne-Colace) 1 tab PO BID [facility] Sennosides (Senokot) 17.2 mg PO Q12H PRN PRN Reason: Moderate Constipation Temazepam (Restoril) 15 mg PO HS PRN PRN Reason: INSOMNIA Allergies Allergy/AdvReac Type Severity Reaction Status Date / Time azithromycin Allergy Severe SEVER N/V Verified 01/30/18 05:17 codeine Allergy Severe N/V Verified 01/30/18 05:17 erythromycin base Allergy Severe SEVER N/V Verified 01/30/18 05:17 adhesive Allergy Intermediate PT Verified 01/30/18 05:17 ALLGERIC TO PAPER TAPE ascorbic acid Allergy Intermediate HIVES Verified 01/30/18 05:17 penicillin G Allergy Intermediate HIVES Verified 01/30/18 05:17 Sulfa (Sulfonamide Allergy Intermediate HIVES Verified 01/30/18 05:17 Antibiotics) NAUSEA vitamin B complex and C Allergy Intermediate HIVES Verified 01/30/18 05:17 vitamin B complex no.3 Allergy Intermediate HIVES Verified 01/30/18 05:17 diatrizoate meglumine Allergy Mild Rash Verified 01/30/18 05:17 gadobenic acid Allergy Mild Rash Verified 01/30/18 05:17 gadodiamide Allergy Mild Rash Verified 01/30/18 05:17 gadoteridol Allergy Mild Rash Verified 01/30/18 05:17 iodixanol Allergy Mild Rash Verified 01/30/18 05:17 iohexol Allergy Mild Rash Verified 01/30/18 05:17 tetanus and diphtheria Allergy Mild Rash Verified 01/30/18 05:17 toxoids Home Medications Medication Instructions Recorded Confirmed Type Unable to Obtain Home Meds 01/30/18 01/30/18 History Exam Vital signs: Vital Signs 01/29/18 23:56 01/30/18 01:26 01/30/18 02:00 Temperature 99.1 F Pulse Rate 94 H 98 H 93 H Respiratory Rate 20 20 Blood Pressure 139/81 136/87 Pulse Oximetry 98 98 01/30/18 07:15 Temperature 98.9 F Pulse Rate 68 Respiratory Rate 19 Blood Pressure 135/76 Pulse Oximetry 99 Intake & Output 01/29/18 01/30/18 01/30/18 18:59 06:59 18:59 Weight 79.379 kg Narrative: GENERAL: NAD, A&Ox0 HEAD: Normocephalic. NECK: Supple, trachea midline. No lymphadenopathy. EYES: No scleral icterus. No injection or drainage. CARDIOVASCULAR: Mild tachycardia and regular rhythm without murmurs, gallops, or rubs. RESPIRATORY: Breath sounds equal bilaterally. No accessory muscle use. GASTROINTESTINAL: Abdomen soft, non-tender, nondistended. MUSCULOSKELETAL: No cyanosis, or edema. SKIN: Warm and dry. NEURO: No focal neurological deficits. Results - Labs CBC & Chem 7: 01/29/18 23:40 01/29/18 23:40 Labs: Short CBC 01/29/18 Range/Units 23:40 WBC 14.3 H (4.0-11.0) th/mm3 Hgb 12.2 (11.6-15.3) gm/dL Hct 37.3 (35.0-46.0) % Plt Count 229 (150-450) th/mm3 BMP 01/29/18 23:40 Sodium 143 Potassium 4.3 Chloride 112 H Carbon Dioxide 21.9 BUN 36 H Creatinine 1.90 H Calcium 9.4 Cardiac Enzymes 01/29/18 Range/Units 23:40 Total Creatine Kinase 247 H (26-192) U/L CK-MB (CK-2) 4.2 H (0.5-3.6) ng/mL Troponin I Less than 0.02 L (0.02-0.05) ng/mL Liver Function 01/29/18 Range/Units 23:40 Total Bilirubin 0.5 (0.2-1.0) mg/dL AST 24 (15-37) U/L ALT 21 (10-53) U/L Alkaline Phosphatase 96 (45-117) U/L Albumin 3.9 (3.4-5.0) g/dL Urine 01/30/18 Range/Units 04:04 Urine Color Yellow (Yellw/Straw) Urine Clarity Clear (Clear) Urine pH 5.0 (5.0-8.5) Ur Specific [place] 1.011 (1.002-1.035) Urine Protein Negative (Neg-Trace) mg/dL Urine Glucose (UA) 150 H (Negative) mg/dL - Imaging Impressions Chest X-Ray 01/29/18 23:37 CONCLUSION: No acute abnormality is seen. Abdomen/Pelvis CT 01/30/18 00:00 CONCLUSION: 1. Distended gallbladder. 2. Mild hiatal hernia. 3. Colonic diverticula. Head CT 01/30/18 00:00 CONCLUSION: 1. No acute abnormality is seen. 2. Stable 2 cm densely calcified mass in the superior medial left frontal region likely related to a meningioma. 3. Decreased density in the cerebral white matter likely related to small vessel ischemic change. 4. Mild cortical atrophy. . Caprini VTE Risk Assessment Caprini VTE Risk Assessment: No/Low Risk (score <= 1) Caprini Risk Assessment Model: Point Value = 1 Point Value = 2 Point Value = 3 Point Value = 5 Age 41-60 Minor surgery BMI > 25 kg/m2 Swollen legs Varicose veins or History of unexplained or recurrent spontaneous Oral contraceptives or hormone replacement Sepsis (< 1 month) Serious lung disease, including pneumonia (< 1 month) Abnormal pulmonary function Acute myocardial infarction Congestive heart failure (< 1 month) History of inflammatory bowel disease Medical patient at bed rest Age 61-74 Arthroscopic surgery Major open surgery (> 45 min) Laparoscopic surgery (> 45 min) Malignancy Confined to bed (> 72 hours) Immobilizing plaster cast Central venous access Age >= 75 History of VTE Family history of VTE Factor V Leiden Prothrombin [id number] Lupus anticoagulant Anticardiolipin antibodies Elevated serum homocysteine Heparin-induced thrombocytopenia Other congenital or acquired thrombophilia Stroke (< 1 month) Elective arthroplasty Hip, pelvis, or leg fracture Acute spinal cord injury (< 1 month) Prophylaxis Regimen: Total Risk Factor Score Risk Level Prophylaxis Regimen 0-1 Low Early ambulation 2 Moderate Order ONE of the following: *Sequential Compression Device (SCD) *Heparin 5000 units SQ BID 3-4 Higher Order ONE of the following medications: *Heparin 5000 units SQ TID *Enoxaparin/Lovenox 40 mg SQ daily (WT < 150 kg, CrCl > 30 mL/min) *Enoxaparin/Lovenox 30 mg SQ daily (WT < 150 kg, CrCl > 10-29 mL/min) *Enoxaparin/Lovenox 30 mg SQ BID (WT < 150 kg, CrCl > 30 mL/min) AND/OR *Sequential Compression Device (SCD) 5 or more Highest Order ONE of the following medications: *Heparin 5000 units SQ TID (Preferred with Epidurals) *Enoxaparin/Lovenox 40 mg SQ daily (WT < 150 kg, CrCl > 30 mL/min) *Enoxaparin/Lovenox 30 mg SQ daily (WT < 150 kg, CrCl > 10-29 mL/min) *Enoxaparin/Lovenox 30 mg SQ BID (WT < 150 kg, CrCl > 30 mL/min) AND *Sequential Compression Device (SCD) Assessment and Plan - Plan 72-year-old female admitted secondary to UTI, sepsis, and associated metabolic encephalopathy Sepsis Continue IV hydration Continue to monitor heart rate Treat infection Monitor for resolution of sepsis Urinary tract infection Follow urine cultures Continue cefepime Metabolic encephalopathy This is related to urinary tract infection Treat as above Supportive care Monitor for resolution of encephalopathy Hypertension Continue baseline treatments Add as needed treatments for any breakthrough hypertension DVT prophylaxis SCDs (fall risk) H&P: Quality - VTE Deep Vein Thrombosis/Pulmonary Embolism Present on Admission: No
[2018-01-30] MEDS: Sod Chloride 0.9% Inj 1,000 ML IV.CONT SCH ×2 (13:28→18:50)
[2018-01-30] MEDS: Senna/Docusate Sodium 8.6/50 MG Tablet PO SCH ×2 (13:29→20:01)
--- NOTE | 2018-01-30 16:52 | MR ---
EXAM DATE: 01/30/2018 4:29 PM EDT AGE/SEX: 72 years / Female INDICATIONS: Dizziness. CLINICAL DATA: This is the patient's initial encounter. Patient reports that signs and symptoms have been present for 1 day and indicates a pain score of 0/10. MEDICAL/SURGICAL HISTORY: Hypertension. Total knee replacement, right. Hysterectomy. Appendec alexy. Right wrist ORIF. Tonsillectomy. COMPARISON: [facility] [place] HEAD W/O CONTRAST, 01/30/2018. 02/05/2011 . TECHNIQUE: Multiplanar, multisequence examination of the brain was performed without contrast. FINDINGS: Cerebrum: Redemonstration of a 2.3 cm left frontal high convexity calcified extra-axial mass consiste nt with meningioma. The ventricles are normal for age. No evidence of midline shift, mass lesion, he morrhage or acute infarction. No extraaxial fluid collections are seen. The pituitary gland and sup rasellar cistern are normal in configuration. White Matter: Mild to moderate periventricular and scattered deep white matter T2 prolongation. Posterior Fossa: The cerebellum and brainstem are intact. The 4th ventricle is midline. The cerebel lopontine angle is unremarkable. The cerebellar tonsils are normal in position. Diffusion Imaging: No focal areas of restricted diffusion are seen. No evidence of acute infarction . Extracranial: The visualized portions of the orbits and paranasal sinuses are unremarkable. CONCLUSION: 1. Stable 2.3 cm left frontal high convexity meningioma. 2. Senescent changes with mild to moderate periventricular white matter ischemic demyelination. 3. No acute abnormality. Electronically signed by: Miguel Willams MD 01/30/2018 4:51 PM EDT
[2018-01-31] MEDS: Sod Chloride 0.9% Inj 1,000 ML IV.CONT SCH ×2 (01:14→11:58)
[2018-01-31 07:26] LABS: Baso # (Auto) 0.1 th/mm3 (0.0-0.2); Baso % (Auto) 0.9 % (0.0-2.0); Eos # (Auto) 0.3 th/mm3 (0.0-0.4); Hemoglobin 11.1 gm/dL (11.6-15.3); Lymph # (Auto) 2.4 th/mm3 (1.0-4.8); Lymph % (Auto) 24.3 % (9.0-44.0); Mean Corpuscular HGB Conc 31.9 % (32.0-36.0); Mean Corpuscular Hemoglobin 26.4 pg (27.0-34.0); Mean Corpuscular Volume 82.8 fL (80.0-100.0); Mean Platelet Volume 9.3 fL (7.0-11.0); Mono % (Auto) 9.9 % (0.0-8.0); Neut # (Auto) 6.1 th/mm3 (1.8-7.7); Neut % (Auto) 61.9 % (16.0-70.0); Platelet Count 223 th/mm3 (150-450); Red Blood Count 4.22 mil/mm3 (4.00-5.30); Red Cell Distribution Width 20.5 % (11.6-17.2); White Blood Count 9.8 th/mm3 (4.0-11.0)
[2018-01-31 08:05] LABS: Alanine Aminotransferase 21 U/L (10-53); Albumin 3.2 g/dL (3.4-5.0); Alkaline Phosphatase 72 U/L (45-117); Anion Gap 10 meq/L (5-15); Aspartate Aminotransferase 24 U/L (15-37); Blood Urea Nitrogen 21 mg/dL (7-18); Calcium 8.6 mg/dL (8.5-10.1); Carbon Dioxide 21.1 meq/L (21.0-32.0); Chloride 112 meq/L (98-107); Glomerular Filtration Rate 61 mL/min (>89); Glucose,Random 93 mg/dL (74-106); Potassium 3.4 meq/L (3.5-5.1); Sodium 143 meq/L (136-145); Total Protein 6.3 g/dL (6.4-8.2)
[2018-01-31] MEDS: Senna/Docusate Sodium 8.6/50 MG Tablet PO SCH (08:17)
[2018-01-31] MEDS ORDERED: amLODIPine 10 MG Tablet PO SCH (09:00)
--- NOTE | 2018-01-31 13:52 | P.DS ---
Date of admission: 01/30/18 05:04 Primary care physician: Chen Amos Brief History from admission: Mrs. Moser is a 72-year-old female. She was brought in secondary to mental confusion and found to have urinary tract infection with sepsis. This morning she has some improvement in her alertness but she remains disoriented. History is difficult. The patient is is feeling better than last night, but I do not know how reliable this is. Sepsis is still present. DS: Medications - Discharge Medications Prescriptions: amlodipine [Norvasc] 10 mg PO DAILY #30 tab Lactobacillus acidophilus 500 mmu cells PO TID #30 cap sulfamethoxazole-trimethoprim [Bactrim DS] 1 tab PO BID #10 tab DS: Summary Hospital Course: Mrs. Moser is a 72-year-old female. She was admitted secondary to sepsis from a urinary tract infection with metabolic encephalopathy related to UTI. Treatment was provided with cefepime. Patient improved through time. She is approaching her baseline mental status. Sepsis is no longer present. At this point she is medically stable and cleared for discharge to home to continue treatment with Bactrim and a probiotic. Blood pressure treatments are adjusted while she is here and she is also discharged with amlodipine. - Time Spent with Patient Total time spent providing and/or coordinating discharge services: Less than 30 minutes - Quality: VTE Deep Vein Thrombosis/Pulmonary Embolism Present on Admission: No Exam Vital signs: Vital Signs 01/30/18 17:15 01/30/18 17:16 01/30/18 17:55 Temperature 98.9 F 98.9 F Pulse Rate 87 87 Respiratory Rate 18 16 Blood Pressure 205/105 H 205/105 H 198/100 H Pulse Oximetry 98 98 01/30/18 19:31 01/30/18 20:00 01/31/18 00:00 Temperature 97.9 F Pulse Rate 93 H 88 82 Respiratory Rate 21 Blood Pressure 229/96 H Pulse Oximetry 98 98 01/31/18 04:00 01/31/18 07:05 01/31/18 08:00 Temperature 98.2 F 98.4 F Pulse Rate 113 H 98 H 116 H Respiratory Rate 21 18 Blood Pressure 199/96 H 176/96 H Pulse Oximetry 98 98 01/31/18 11:10 01/31/18 12:00 Temperature 97.9 F Pulse Rate 115 H 103 H Respiratory Rate 18 Blood Pressure 119/63 Pulse Oximetry 98 Intake & Output 01/30/18 01/31/18 01/31/18 18:59 06:59 18:59 Intake Total 1000 / 1000 2200 / 2200 1100 / 1100 Balance 1000 / 1000 2200 / 2200 1100 / 1100 Intake: IV 1000 / 1000 2200 / 2200 1100 / 1100 NS Inj 1,000 ML @ 100 mls/hr IV 1000 / 1000 1000 / 1000 1000 / 1000 .CONT .Q10H URSZULA Rx#:[id number] Maxipime Inj 1,000 MG In NS Inj 0 / 0 100 / 100 100 / 100 100 ML @ 200 mls/hr IV.SIG Q12H URSZULA Rx#:[id number] NS Inj 1,000 ML @ Wide Open IV. 1000 / 1000 SIG .Q0M URSZULA Rx#:[id number] Other: # Voids 4 Date of Last Bowel Movement 01/30/18 Results Procedures completed during hospitalization: None Labs on day of discharge: Labs from last 24 hours 01/31/18 01/31/18 01/30/18 07:05 07:05 23:18 WBC 9.8 RBC 4.22 Hgb 11.1 L Hct 35.0 MCV 82.8 MCH 26.4 L MCHC 31.9 L RDW 20.5 H Plt Count 223 MPV 9.3 Neut % (Auto) 61.9 Lymph % (Auto) 24.3 Hooker % (Auto) 9.9 H Eos % (Auto) 3.0 Baso % (Auto) 0.9 Neut # (Auto) 6.1 Lymph # (Auto) 2.4 Hooker # (Auto) 1.0 H Eos # (Auto) 0.3 Baso # (Auto) 0.1 WBC Differential . Differential Comment Auto diff final Sodium 143 Potassium 3.4 L D Chloride 112 H Carbon Dioxide 21.1 Anion Gap 10 BUN 21 H Creatinine 0.91 Estimated GFR 61 L Random Glucose 93 Calcium 8.6 D Total Bilirubin 0.6 AST 24 ALT 21 Alkaline Phosphatase 72 Troponin I 0.03 Total Protein 6.3 L D Albumin 3.2 L D 01/30/18 15:30 WBC RBC Hgb Hct MCV MCH MCHC RDW Plt Count MPV Neut % (Auto) Lymph % (Auto) Hooker % (Auto) Eos % (Auto) Baso % (Auto) Neut # (Auto) Lymph # (Auto) Hooker # (Auto) Eos # (Auto) Baso # (Auto) WBC Differential Differential Comment Sodium Potassium Chloride Carbon Dioxide Anion Gap BUN Creatinine Estimated GFR Random Glucose Calcium Total Bilirubin AST ALT Alkaline Phosphatase Troponin I 0.03 Total Protein Albumin Preliminary micro results at discharge 01/29/18 23:40 Aerobic Blood Culture - Preliminary Blood - Peripheral No growth in 2 days Anaerobic Blood Culture - Preliminary No growth in 2 days 01/29/18 23:40 Aerobic Blood Culture - Preliminary Blood - Peripheral No growth in 2 days Anaerobic Blood Culture - Preliminary No growth in 2 days - Impressions ITS Impressions Chest X-Ray 01/29/18 23:37 CONCLUSION: No acute abnormality is seen. Abdomen/Pelvis CT 01/30/18 00:00 CONCLUSION: 1. Distended gallbladder. 2. Mild hiatal hernia. 3. Colonic diverticula. Head CT 01/30/18 00:00 CONCLUSION: 1. No acute abnormality is seen. 2. Stable 2 cm densely calcified mass in the superior medial left frontal region likely related to a meningioma. 3. Decreased density in the cerebral white matter likely related to small vessel ischemic change. 4. Mild cortical atrophy. . Head MRI 01/30/18 00:00 CONCLUSION: 1. Stable 2.3 cm left frontal high convexity meningioma. 2. Senescent changes with mild to moderate periventricular white matter ischemic demyelination. 3. No acute abnormality. Discharge Plan - Discharge Disposition Patient Disposition: 01 Discharge Home - Discharge Condition Condition: Stable - Discharge Order Discharge Orders: Discharge Order (Routine); Ordered 01/31/18 Ordered By: Preston Montgomery - Discharge Details Anticipated Discharge Date: 01/31/18 - Physicians Team Primary Care Provider: Chen Amos Attending Provider: Preston Montgomery
== END 2018-01-31 15:36 | disposition home or self-care (01) ==
LOC: NEPC 23:23 → NEDA 01-30 05:04 → NEPHCDU 01-30 07:34
PROVIDERS: ADMIT Hospitalist; ATTEND Hospitalist

== ENCOUNTER 2018-03-30 05:47 | Observation (INO) ==
--- NOTE | 2018-03-26 12:02 | MH ---
cc: Luis Eduardo Barker MD DATE OF ADMISSION: 03/30/2018 ADMITTING DIAGNOSIS: Osteoarthritic degeneration left knee, now being admitted for left total knee arthroplasty. ADMISSION HISTORY AND PHYSICAL: The patient as a pleasant 72-year-old female who is being admitted today for a left total knee arthroplasty due to severe painful osteoarthritic degeneration of the left knee. OTHER PAST HISTORY: The patient has a history of asthma, hypertension, chronic back pain and arthritis. She has previously had a right total knee arthroplasty and a carpal tunnel release. CURRENT MEDICATIONS: Include: 1. Baclofen. 2. Lisinopril/hydrochlorothiazide. 3. Lexapro. 4. Temazepam. 5. Lindon. REVIEW OF SYSTEMS: Noncontributory. FAMILY HISTORY: Noncontributory. SOCIAL HISTORY: She not smoke and does not drink. ALLERGIES: NO KNOWN ALLERGIES. PHYSICAL EXAMINATION: GENERAL: We find a 72-year-old female, well-developed, well-nourished, and oriented x3, complaining of pain in her left knee. VITAL SIGNS: Blood pressure is 122/78, pulse 80 and regular, respirations 16, temperature 98.3, pulse oximetry 95% on room air. HEENT: Eyes PERRLA. EOMI. Ears and mouth clear. NECK: Supple. LUNGS: Clear. HEART: Regular rate. ABDOMEN: Soft, positive bowel sounds, nontender. EXTREMITIES: Reveal the left knee has crepitance and range of motion lacks 5 degrees short of full extension, has some genu valgus deformity. Neurovascularly intact to her toes. IMPRESSION: Severe painful osteoarthritic degeneration of the left knee. PLAN: Admission for left total knee arthroplasty today. The patient was given a prescription postoperative pain and anticoagulation control in the office; plans on going home after surgical stay in the hospital. MD EMPERATRIZ Richardson/deanna , 11:00 AM , 11:07 AM
[2018-03-30] MEDS ORDERED: Clindamycin 900 mg/NS Premix 900 MG/50 ML PIGGYBACK IV.SIG SCH (06:15)
[2018-03-30] MEDS ORDERED: Chlorhexidine 4% Topical 120 APPLIC/120 ML Bottle TOPICAL SCH (06:15)
[2018-03-30] MEDS ORDERED: Metoprolol Tartrate 25 MG Tablet PO ONE (06:16)
[2018-03-30] MEDS ORDERED: Chlorhexidine Gluconate 2% 1 Pack (2 Cloths) TOPICAL ONE (06:16)
[2018-03-30] MEDS ORDERED: Sodium Chlor 0.9% Inj 500 ML IV.SIG SCH (07:00)
[2018-03-30] MEDS ORDERED: Sodium Chlor 0.9% Inj 80 ML, Bupivacaine Liposo PF 1.3% Inj 20 ML, Bupivacaine 0.25% In... P-ARTICULR SCH ×3 (07:30)
[2018-03-30] MEDS ORDERED: Tranexamic Acid Inj 790 MG in Sodium Chlor 0.9% Inj 100 ML IV.SIG SCH (08:00)
[2018-03-30] MEDS ORDERED: Post-op Orders (for Pharmacy) OTHER STA (08:12)
[2018-03-30] MEDS ORDERED: Bisacodyl 10 MG Supp RECTAL PRN (08:12)
[2018-03-30] MEDS ORDERED: Succinylcholine Inj 100 MG/5 ML Syringe IV.PUSH ONE (08:15)
[2018-03-30] MEDS ORDERED: Ketorolac Inj 30 MG/ML (IVP) Vial IV.PUSH ONE (08:15)
[2018-03-30] MEDS ORDERED: Lidocaine PF 1% Inj 5 ML Syringe OTHER ONE (08:15)
[2018-03-30] MEDS ORDERED: Labetalol HCl Inj 100 MG/20 ML Vial IV.CONT ONE (08:15)
--- NOTE | 2018-03-30 08:24 | P.DCO ---
- Diagnosis (1) Status post total left knee replacement using cement Status: Acute - Physical Therapy Order: Evaluate and treat, Improve ambulation, Strength and gait training - Home Health Nursing Order: Medical education - Case Management Consult Yes - Certification I have seen patient Arline Moser on 03/30/18. My clinical findings support the need for the requested home health care services because: Limited ability to care for self, High risk of falls I certify that my clinical findings support that this patient is homebound because: Post-op weakness, Unsteady gait/balance, Unsafe to leave home unassisted
[2018-03-30] MEDS ORDERED: COQ10 PO SCH (09:00)
[2018-03-30] MEDS ORDERED: GARLIC 1000 MG PO SCH (09:00)
[2018-03-30] MEDS ORDERED: BIOTIN 1 MG PO SCH (09:00)
[2018-03-30] MEDS ORDERED: Non-Formulary Drug (Glucosamine-Chondroitin [Glucosamine-Chondroitin] 1 CAP) PO SCH (09:00)
[2018-03-30] MEDS ORDERED: [UNRECOGNIZED DRUG - OTHER] PO SCH (09:00)
[2018-03-30] MEDS ORDERED: VITAMIN A 10000 UNIT PO SCH (11:00)
[2018-03-30] MEDS ORDERED: Tranexamic Acid Inj 1,000 MG in Sodium Chlor 0.9% Inj 100 ML IV.SIG SCH (11:00)
--- NOTE | 2018-03-30 11:07 | P.BOP ---
- Preoperative Diagnosis (1) Osteoarthritis of left knee - Postoperative Diagnosis (1) Status post total left knee replacement using cement Date of procedure: 03/30/18 Procedure: Left total Knee Arthroplasty Implants: see implant record Anesthesia: GETA Surgeon: Luis Eduardo Barker MD Business Support Administrator: Janet Arroyo Estimated blood loss (mL): 200 Tourniquet time (min): 47 Urine output (mL): 0 (no nix) Pathology: none sent Condition: stable Disposition: same day
[2018-03-30] MEDS ORDERED: fentaNYL Citrate Inj 100 MCG/2 ML Ampul ONE (11:08)
[2018-03-30] MEDS ORDERED: *Meperidine Inj 25 MG/ML Vial PERIprocedural Use ONLY ONE (11:20)
--- NOTE | 2018-03-30 11:40 | XR ---
EXAM DATE: 03/30/2018 8:12 AM EDT AGE/SEX: 72 years / Female INDICATIONS: Post op left knee. CLINICAL DATA: This is the patient's initial encounter. Patient reports that signs and symptoms have been present for 1 day and indicates a pain score of Nonresponsive. MEDICAL/SURGICAL HISTORY: None. Total knee replacement, right. Total knee replacement, left. COMPARISON: [facility] [place], KNEE RIGHT [facility] (1 OR 2 VWS), 11/30/2012. . FINDINGS: Left knee arthroplasty in place. Arthroplasty components are in anatomic alignment without acute bony fracture. Immediate postsurgical soft tissue changes are noted. CONCLUSION: 1. Left knee arthroplasty in anatomic alignment without acute fracture. Electronically signed by: Miguel Willams MD 03/30/2018 11:39 AM EDT
--- NOTE | 2018-03-30 11:40 | MP ---
cc: Luis Eduardo Barker MD DATE OF OPERATION: 03/30/2018 PREOPERATIVE DIAGNOSIS: Osteoarthritic degeneration, left knee POSTOPERATIVE DIAGNOSIS: Osteoarthritic degeneration, left knee. PROCEDURE PERFORMED: Left total knee arthroplasty using Consensus components, size 3 femur, 2 tibia, 2 patella, size 12 insert with 2 batches of antibiotic-impregnated cement. SURGEON: Luis Eduardo Barker MD MEAT TRIMMER: COURTNEY Comer ANESTHESIA: General intubation and block. PROCEDURE: After successful induction of anesthesia, the patient is placed on the operating room table in the supine position. The knee is prepped and draped in the usual manner. A tourniquet is inflated at the upper thigh and set to 300 mmHg pressure after exsanguination of the lower extremity. A longitudinal incision is made extending from 3 inches proximal to the superior pole of the patella, across the patella in longitudinal fashion, and down past the insertion of the tibial tubercle into the proximal tibia. The incision is carried down through subcutaneous tissue along the medial aspect of the patella and retinaculum, down through the capsule to expose the knee joint. The patella and patellar tendon are freed up enough to allow the patella to be inverted and retracted off the lateral side of the knee joint. The knee joint is left exposed. Small osteophytes are removed. All soft tissue is removed to allow proper position of the femoral and tibial cutting jig guide. The first femoral jig is then inserted along the distal end of the femur after first measuring to decide whether this is a small, medium, or large component. The notch is then drilled and the tibial cutting guide inserted into the femoral cutting guide, along with the ankle brace to allow for proper measurement of the tibial cutting surface that needed to be resected. Pins are inserted into the tibial cutting jig and femoral cutting jig to hold them in place. An oscillating saw is then used to resect the surface of the tibia. The surface of the tibia is then completely removed using sharp and blunt dissection. The anterior and posterior cuts of the femur are then made as well using an oscillating saw through the cutting guide. All guides are then removed and the varus/valgus angulation cutting guide applied to the femur for proper measurement of the proper amount of valgus. The anterior cutting guide for the femur is then inserted at the anterior femoral cuts made. Next, the first block trial is inserted into the femur to allow for proper condyle drill holes to be made which are then made followed by removal of the bone between the condyles using an oscillating saw as well as the bone removed at the most posterior surface of the condyle. After this, this guide is removed and the chamfer cuts made using the chamfer cutting guide from both anterior and posterior. Next, the femoral trial is then inserted, the tibial surface reflected anterior to expose the tibial surface and a tibial stem guide is inserted after first measuring for a standard, standard plus, large, or large plus surface to be used. After the stem is impacted the trial tibial surface is applied followed by the trial meniscal components. After full range of motion is found with the appropriate length meniscal components varying the patella is prepared by resecting the posterior aspect of the patella using an oscillating saw, inserting a trial. The trial is then removed and the cruciate cutting guide applied using the bur to cut the cruciate cuts. After cruciate cuts are made all trials are removed. The wound is irrigated copiously with antibiotic solution and Water Pik and the actual components inserted into place using the aforementioned components. After the cement has hardened and the components are found to have full range of motion with no instability, the tourniquet is deflated, total tourniquet time being 47 minutes at 300 mmHg pressure. The wound again is irrigated copiously with antibiotic solution, meticulous hemostasis achieved. 120 mL mixture of Exparel and normal saline and 0.25% Marcaine plain inserted around the knee joint for extra pain control. Deep fascia approximated with running #2 Quill, subcutaneous tissue approximated using interrupted, running, 2-0 and 3-0 Monocryl suture, and Prineo dressing and knee immobilizer. No drain utilized. The patient tolerated the procedure well and left the Operating Room in satisfactory condition. ESTIMATED BLOOD LOSS: 100 mL. COUNTS: Sponge and suture counts were correct. COMPONENTS: The components used were aforementioned components. The patient tolerated the procedure well and left the operating room in satisfactory condition. Mena Arroyo APRN, was present during the entire procedure to include patient positioning and the procedure. The medical necessity of a nurse practitioner business services assistant was indicated in this case due to the surgical complexity of the case itself. During the surgical case, the surgical elastic knitter hand frame was working the back table while my surgical attendant BEVERLY was directly assisting me. J. MD EMPERATRIZ Campbell/vilma , 10:33 AM , 10:39 AM
[2018-03-30] MEDS ORDERED: *morphine SULFATE 4 MG/ML PERIprocedure ONLY ONE ×2 (12:23→12:56)
[2018-03-30] MEDS: Clindamycin 600 mg/NS Premix 600 MG/50 ML PIGGYBACK IV.SIG SCH ×2 (14:00→20:44)
[2018-03-30] MEDS: Baclofen 10 MG Tablet PO SCH ×2 (17:40→21:13)
[2018-03-30] MEDS: Gabapentin 300 MG Capsule PO SCH ×3 (17:40→21:10)
[2018-03-30] MEDS: Lactobacillus Acidophilus/L. Spores Tablet PO SCH ×2 (17:40→21:13)
[2018-03-30] MEDS: Senna/Docusate Sodium 8.6/50 MG Tablet PO SCH ×2 (20:45→21:09)
[2018-03-30] MEDS ORDERED: Temazepam 15 MG Capsule PO PRN (21:00)
[2018-03-30] MEDS: Folic Acid 1 MG Tablet PO SCH (21:13)
[2018-03-31] MEDS: Clindamycin 600 mg/NS Premix 600 MG/50 ML PIGGYBACK IV.SIG SCH ×2 (01:41→08:00)
[2018-03-31] MEDS: Morphine Inj 4 MG/ML Vial IV.PUSH PRN ×2 (01:46→21:21)
[2018-03-31 07:17] LABS: Hematocrit 29.6 % (35.0-46.0); Hemoglobin 9.6 gm/dL (11.6-15.3)
[2018-03-31] MEDS ORDERED: VITAMIN B COMPLEX PO SCH (09:00)
[2018-03-31] MEDS: Folic Acid 1 MG Tablet PO SCH (09:42)
[2018-03-31] MEDS: Baclofen 10 MG Tablet PO SCH ×3 (09:43→18:13)
[2018-03-31] MEDS: Lactobacillus Acidophilus/L. Spores Tablet PO SCH ×3 (09:43→18:13)
[2018-03-31] MEDS: Gabapentin 300 MG Capsule PO SCH ×4 (09:44→21:21)
[2018-03-31] MEDS: amLODIPine 5 MG Tablet PO SCH (09:44)
[2018-03-31] MEDS: Senna/Docusate Sodium 8.6/50 MG Tablet PO SCH ×2 (09:45→21:21)
--- NOTE | 2018-03-31 10:28 | P.PNOP ---
Subjective Interval history: Pt basically comfortable with some discomfort in knee. Physical Exam Vital signs: Vital Signs 03/30/18 11:01 03/30/18 11:15 03/30/18 11:30 Temperature 98 F Pulse Rate 91 H 90 88 Respiratory Rate 18 18 18 Blood Pressure 163/72 H 142/70 H 138/69 Pulse Oximetry 92 L 93 L 93 L 03/30/18 11:45 03/30/18 12:00 03/30/18 13:00 Temperature Pulse Rate 86 89 89 Respiratory Rate 18 18 18 Blood Pressure 143/69 H 132/59 L 128/63 Pulse Oximetry 93 L 93 L 93 L 03/30/18 13:50 03/30/18 16:00 03/30/18 19:50 Temperature 98 F 97.5 F L 98.2 F Pulse Rate 90 75 85 Respiratory Rate 18 18 18 Blood Pressure 115/59 L 120/56 L 128/63 Pulse Oximetry 93 L 91 L 94 L 03/30/18 23:39 03/31/18 03:33 03/31/18 08:00 Temperature 98.3 F 98.4 F 99.6 F Pulse Rate 94 H 77 88 Respiratory Rate 18 18 Blood Pressure 124/72 145/68 H 123/57 L Pulse Oximetry 95 95 94 L Intake & Output 03/30/18 03/31/18 03/31/18 18:59 06:59 18:59 Intake Total 2157.9 / 2157.9 300 / 300 Output Total 350 / 350 Balance 1807.9 / 1807.9 300 / 300 Weight 78.925 kg Intake: IV 1157.9 / 1157.9 300 / 300 LR 1000 mL Inj 1,000 ML @ 80 150 / 150 mls/hr IV.CONT .[id number] URSZULA Rx# :[id number] Cleocin 600 mg/NS Premix 600 mg 150 / 150 In 50 ml @ 100 mls/hr IV.SIG Q6H URSZULA Rx#:[id number] Cleocin 900 mg/NS Premix 900 mg 50 / 50 In 50 ml @ 100 mls/hr IV.SIG CARDROOM DRAWING RUNNER URSZULA Rx#:[id number] LR 1000 mL Inj 1,000 ML @ 30 1000 / 1000 0 / 0 mls/hr IV.SIG .Q24H URSZULA Rx#: [id number] Cyklokapron Inj 790 MG In NS 107.9 / 107.9 Inj 100 ML @ 200 mls/hr IV.SIG ONCE URSZULA Rx#:[id number] Anesthesia Amount 1000 / 1000 Output: Urine 250 / 250 Estimated Blood Loss 100 / 100 Other: # Voids 1 - Constitutional no acute distress Results - Labs CBC & Chem 7: 03/31/18 05:05 Laboratory Results - last 24 hr 03/31/18 05:05 Hgb 9.6 L Hct 29.6 L - Imaging Impressions Knee X-Ray 03/30/18 08:12 CONCLUSION: 1. Left knee arthroplasty in anatomic alignment without acute fracture. Assessment and Plan - Problem List (1) Status post total left knee replacement using cement Code(s): Z96.652 - Presence of left artificial knee joint Status: Acute - Attending Attestation Attending Attestation: Sitting up in chair. NV intact to toes. No calf tenderness. Dressing dry and intact. Plan to cont PT and home tomorrow with C and PT.
[2018-04-01 01:18] VITALS: RESP 16
--- NOTE | 2018-04-01 08:17 | P.PNOP ---
Subjective Interval history: Pt is basicallly comfortable. Ready for dc to home today. Physical Exam Vital signs: Vital Signs 03/31/18 12:00 03/31/18 16:00 03/31/18 20:00 Temperature 98.6 F 98.8 F 98.6 F Pulse Rate 87 87 85 Respiratory Rate 20 18 17 Blood Pressure 111/56 L 155/73 H 115/56 L Pulse Oximetry 93 L 95 93 L 04/01/18 00:00 Temperature 99.9 F H Pulse Rate 94 H Respiratory Rate 16 Blood Pressure 140/70 Pulse Oximetry 92 L Intake & Output 03/31/18 04/01/18 04/01/18 18:59 06:59 18:59 Intake Total 530 / 530 360 / 360 Balance 530 / 530 360 / 360 Weight 92.9 kg Intake: IV 50 / 50 Cleocin 600 mg/NS Premix 600 mg 50 / 50 In 50 ml @ 100 mls/hr IV.SIG Q6H URSZULA Rx#:[id number] Oral 480 / 480 360 / 360 Other: # Voids 3 2 Date of Last Bowel Movement 03/29/18 - Constitutional no acute distress Results - Labs CBC & Chem 7: 03/31/18 05:05 Assessment and Plan - Problem List (1) Status post total left knee replacement using cement Code(s): Z96.652 - Presence of left artificial knee joint Status: Acute - Attending Attestation Attending Attestation: Dressing dry and intact. No calf tenderness. Plan for home with [facility] and PT today.
[2018-04-01 09:50] VITALS: BP 148/66; PULSE 95; TEMP 98.6; O2SAT 99
[2018-04-01] MEDS: Lactobacillus Acidophilus/L. Spores Tablet PO SCH (09:56)
[2018-04-01] MEDS: Baclofen 10 MG Tablet PO SCH (09:56)
[2018-04-01] MEDS: Folic Acid 1 MG Tablet PO SCH (09:56)
[2018-04-01] MEDS: Senna/Docusate Sodium 8.6/50 MG Tablet PO SCH (09:56)
[2018-04-01] MEDS: amLODIPine 5 MG Tablet PO SCH (09:57)
[2018-04-01] MEDS: Gabapentin 300 MG Capsule PO SCH (09:57)
--- NOTE | 2018-04-01 11:27 | MD ---
cc: Luis Eduardo Barker MD DATE OF DISCHARGE: 04/01/2018 ADMITTING DIAGNOSIS: Osteoarthritic degeneration, left knee. DISCHARGE DIAGNOSIS: Osteoarthritic degeneration, left knee. DISCHARGE SUMMARY: A 72-year-old female admitted on 03/30/2018, with severe osteoarthritic degeneration of the left knee for which she underwent a left total knee arthroplasty on day of admission. She received a course of prophylactic IV antibiotics and within 23 hours started on anticoagulation therapy. She continued to improve, tolerating food and fluid well, physical therapy, and p.o. pain medications. She was discharged on the second postoperative day in good condition with instructions for home health care, physical therapy, and an appointment to the office the following week for recheck. J. Fawad Barker MD JRR/rs , 08:28 AM , 08:32 AM
== END 2018-04-01 10:31 | disposition home health service (06) ==
LOC: HSDC 05:47 → HSDI 05:47 → N06 14:04
PROVIDERS: ADMIT Surgery; ATTEND Surgery